=== PATIENT | female | born 1945 | race Caucasian/White ===

== ENCOUNTER → 2016-08-15 | Outpatient (CLI) | payer BC ==
--- NOTE | 2016-08-16 07:52 | XR ---
EXAM TYPE: LUMBAR SPINE X RAY SERIES COMPARISON: NONE HISTORY: Chronic pain TECHNIQUE: 4 views are submitted. FINDINGS: Curvature of the spine noted severe degenerative disc disease L-1-L2. Vacuum disc and severe changes at L5-S1 disc space. Marked facet arthropathy. Severe degenerative disc disease L2-L3. Surgical clips in the right upper quadrant and multiple punctate calcifications suggestive of renal s tones. IMPRESSION: 1. Scoliotic curvature of the spine with multilevel severe degenerative disc disease consider MRI. 2. Correlate for right-sided renal calculi
--- NOTE | 2016-08-16 07:53 | XR ---
EXAMINATION TYPE: XR knee complete RT DATE OF EXAM: 08/15/2016 1:34 PM COMPARISON: NONE HISTORY: Pain TECHNIQUE: Four views are submitted. FINDINGS: Hypertrophic changes and narrowing of the joint space is seen. No erosive changes. Small amount flows patellar bursa. Osseous structures are intact. No acute fracture seen. IMPRESSION: 1. No acute fracture or dislocation. 2. Post arthritic changes.
== END | disposition home or self-care (01) ==
LOC: RADXRYALE 13:14
PROVIDERS: ATTEND Internal Medicine
DX: M13.861 Other specified arthritis, right knee (principal); M51.36 Other intervertebral disc degeneration, lumbar region; M41.9 Scoliosis, unspecified
CPT/HCPCS: 72110

== ENCOUNTER → 2016-09-26 | Outpatient (CLI) | payer BC ==
--- NOTE | 2016-09-26 09:13 | MR ---
EXAMINATION TYPE: MR lumbar spine wo con DATE OF EXAM: 09/26/2016 7:58 AM COMPARISON: NONE HISTORY: spinal stenosis lsp, back pain TECHNIQUE: T1 and T2 axial and sagittal images of the lumbar spine are submitted. FINDINGS: There is no abnormal signal seen within the visualized spinal cord or paraspinal soft tissu es. There is a curvature the spine with severe degenerative disc disease L-1-2 and L2-L3 with discoge kamila marrow changes. Similar findings at L5-S1 with small vertebral body hemangioma. Vertebral body he mangioma also noted at levels L4, L3, and L2. There is a 1.9 cm mass involving the left kidney upper pole. At T12-L1 there is right paracentral lateral disc bulging but no canal stenosis or foraminal encroach ment. No spinal cord contact. At L1-2 there is there is a marked facet arthropathy. No canal stenosis or foraminal encroachment. At L2-3 there is diffuse disc bulging greater paracentrally and laterally to the right with mild to m oderate right foraminal encroachment. No Canal stenosis. Facet arthropathy noted. At L3-4 there is severe facet arthropathy and hypertrophy of the ligamentum flavum is circumferential disc bulging and borderline canal stenosis. Mild left-sided foraminal encroachment. At L4-5 there is severe facet arthropathy with ligamentum flavum hypertrophy but no focal disc hernia tion or canal stenosis. No foraminal encroachment. At L5-S1 there is severe degenerative disc disease with 2 mm retrolisthesis of L5 relative to S1. Anitra ular tear seen with no discrete herniation. There is significant facet arthropathy and mild to modera te foraminal encroachment greater on the left secondary to greater hypertrophic changes on the left. IMPRESSION: 1. Stable left renal mass dating back to 2013 differential diagnosis would include angiomyolipoma. Un derlying renal cell carcinoma also in the differential diagnosis. Note is made the lesion was not pre sent on the CT scan of 2005. 2. Scoliotic curvature with severe multilevel degenerative disc disease. Multilevel facet arthropathy noted with the most marked changes involving the mid and lower lumbar spine. 3. Multilevel foraminal encroachment with the most marked changes seen at L5-S1 greater on the left. 4. Borderline canal stenosis L3-L4 due to disc bulging and hypertrophic changes. No discrete herniati on and in the visualized levels. 5. Heterogeneous marrow changes are nonspecific but likely the basis of osteopenia.
== END | disposition home or self-care (01) ==
LOC: RADMRIMAIN 07:04
PROVIDERS: ATTEND Internal Medicine
DX: M48.06 Spinal stenosis, lumbar region (principal); M99.73 Connective tissue and disc stenosis of intervertebral foramina of lumbar region
CPT/HCPCS: 72148

== ENCOUNTER → 2016-10-21 | Outpatient (CLI) | payer BC ==
--- NOTE | 2016-10-21 08:59 | MR ---
EXAMINATION TYPE: MR knee RT wo con DATE OF EXAM: 10/21/2016 COMPARISON: Right knee 15 August 2016 HISTORY: Rt Knee Pain TECHNIQUE: Multiplanar, multisequence imaging of the right knee is performed without IV contrast. FINDINGS: MEDIAL MENISCUS: Posterior horn of the medial meniscus shows abnormal increased signal involving its lateral aspect, linear increased signal is present which extends into the body. Anterior horn appears intact. LATERAL MENISCUS: Anterior and posterior horns are intact without tear. CRUCIATE LIGAMENTS: The anterior and posterior cruciate ligaments are intact and unremarkable. COLLATERAL LIGAMENTS: The medial collateral ligament and lateral collateral ligament complex are inta ct and unremarkable. EXTENSOR MECHANISM: Visualized quadriceps and patellar tendons are intact. EFFUSION: There is a sizable joint effusion present in the suprapatellar location. POPLITEAL CYST: No popliteal/ku cyst. TRICOMPARTMENT SPACES: Joint space loss is present with remodeling especially at the patellofemoral j oint, medial compartment CARTILAGE: Grade 3 to grade 4 articular cartilage loss present posterior patella, medial femoral cond yle BONE MARROW SIGNAL: Subchondral edema changes are present at the posterior patella, medial femoral co ndyle OTHER: Marginal spurring is present in the medial compartment, patellofemoral joint. Subcutaneous ed yu changes are present. IMPRESSION: Osteoarthritis, chondromalacia as described. Tear of the posterior horn medial meniscus.
== END | disposition home or self-care (01) ==
LOC: RADMRIMAIN 07:05
PROVIDERS: ATTEND Internal Medicine
DX: S83.241A Other tear of medial meniscus, current injury, right knee, initial encounter (principal); M94.261 Chondromalacia, right knee; M17.11 Unilateral primary osteoarthritis, right knee

== ENCOUNTER → 2018-05-20 | Outpatient (CLI) | payer MEDICARE ==
--- NOTE | 2018-05-23 11:05 | MM ---
Reason for exam: screening (asymptomatic). Last mammogram was performed 2 years ago. History: Patient is postmenopausal and has history of other cancer at age 68. Family history of breast cancer in paternal grandmother and breast cancer in cousin. Physical Findings: A clinical breast exam by your physician is recommended on an annual basis and results should be correlated with mammographic findings. MG 3D Screening Mammo W/Cad Bilateral CC and MLO view(s) were taken. Prior study comparison: May 18, 2016, bilateral MG screening mammo w CAD. May 10, 2015, bilateral MG screening mammo w CAD. There are scattered fibroglandular densities. There is no discrete abnormality. ASSESSMENT: Negative, BI-RAD 1 RECOMMENDATION: Routine screening mammogram of both breasts in 1 year.
== END ==
LOC: RADMAMWWP 09:34
PROVIDERS: ATTEND Internal Medicine
DX: Z12.31 Encounter for screening mammogram for malignant neoplasm of breast (principal)
CPT/HCPCS: 77063; 77067

== ENCOUNTER → 2018-10-14 | Outpatient (CLI) | payer MEDICARE | END | disposition home or self-care (01) | LOC: LABWHC1 11:49 | PROVIDERS: ATTEND Psychiatry & Neurology Neurology | DX: D32.9 Benign neoplasm of meninges, unspecified (principal) | CPT/HCPCS: 36415; 82565; 84520 ==

== ENCOUNTER → 2018-11-25 | Outpatient (CLI) | payer MEDICARE, OTHER ==
--- NOTE | 2018-11-26 13:31 | MR ---
EXAMINATION TYPE: MR kidney wo/w con DATE OF EXAM: 11/25/2018 COMPARISON: CT the chest dated 11/02/2015 HISTORY: Benign lipomatous neoplasm of kidney CONTRAST: Standard multiplanar, multisequence MRI departmental protocol utilizing 9.5 mL intravenous Gadavist g adolinium contrast. FINDINGS: There is no evidence of signal dropout within the liver to suggest hepatic steatosis. There is a smal l hiatal hernia. Punctate probable cysts are seen within the hepatic infiltrate and associated segmen t 6 measuring 3 mm. Hepatic cyst that is T2 hyperintense and T1 hypointense and nonenhancing. No susp icious hepatic lesion is seen. The known left upper pole angiomyolipoma with macroscopic fat does demonstrate signal dropout on out of phase imaging with microscopic fat also seen. This demonstrates dropout of signal on fat saturated images as well. No hemorrhage is identified mass. This measures up to 2.5 x 2.1 cm position this dem onstrates minimal growth from the prior of 11/02/2015. Small splenule is seen. Spleen is nonenlarged 11.8 cm in longitudinal dimension. No ductal dilatation . Punctate T2 hyperintense 3 mm cystic areas are seen within the pancreas on T2 axial fat sat image 2 4 and 16 in the body and uncinate process respectively. 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 I ncidental note is made of a circumaortic left renal vein. No pathologic adenopathy is seen. IMPRESSION: 1. Minimal enlargement of the left renal angiomyolipoma in comparison to the prior of 11/02/2015. This now measures up to 2.5 cm. Given the size this is at low risk for intratumoral hemorrhage. 2. 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 Annual surve illance is recommended for lesions of this size.
== END | disposition home or self-care (01) ==
LOC: RADMRIMAIN 11:52
PROVIDERS: ATTEND Internal Medicine
DX: D17.71 Benign lipomatous neoplasm of kidney (principal); K86.9 Disease of pancreas, unspecified
CPT/HCPCS: 74183; A9585

== ENCOUNTER → 2019-04-01 | Outpatient (CLI) | payer MEDICARE, OTHER ==
--- NOTE | 2019-04-01 10:36 | XR ---
Cervical spine HISTORY: Neck pain, numbness in base of head 5 views of the cervical spine with comparison to prior cervical spine plain film 06/07/2015 There is multilevel facet arthropathy change. Incidental note made of a loop recorder over the left u pper chest. Oblique images are limited on the left for evaluation of the foramina, and the right there is some fo raminal encroachment at C3-4, C4-5, C5-6, likely C6-7. Multilevel spondylosis is present. Cervical ve rtebral bodies show stable height and alignment. Loss of disc height present at intervertebral levels C3-4, C4-5 and C5-6 and C6-7. Minimal anterolisthesis grade 1 C7-T1. IMPRESSION: Degenerative disc disease and facet arthropathy, multilevel foraminal encroachment, findi ngs have progressed compared to prior exam at C3-4, cervical MRI could be performed for increased sen sitivity.
== END | disposition home or self-care (01) ==
LOC: RADXRYALE 09:55
PROVIDERS: ATTEND Internal Medicine
DX: M50.30 Other cervical disc degeneration, unspecified cervical region (principal); M46.92 Unspecified inflammatory spondylopathy, cervical region
CPT/HCPCS: 72050

== ENCOUNTER → 2019-04-30 | Outpatient (CLI) | payer MEDICARE, OTHER ==
--- NOTE | 2019-04-30 14:32 | MR ---
EXAMINATION TYPE: MR cervical spine wo con DATE OF EXAM: 04/30/2019 COMPARISON: None HISTORY: 73-year-old female Spinal stenosis, cervical region, pain TECHNIQUE: Multiplanar, multisequence images of the cervical spine were acquired. FINDINGS: No craniocervical junction of the body, predental space widening, or prevertebral soft tissue swellin g. Some degenerative change at the C1 dens articulation. Straightening of the normal cervical lordosis but with preserved alignment. Moderate disc session for degenerative change is present mid and lower cervical spine with desiccated , mildly narrowed disks and discussed by complex formation particularly at C4-C7 levels. Additional multilevel facet and uncovertebral joint arthropathy. Some sclerotic Modic type III endplate changes present at C6-C7 and some scattered fatty Modic type I I endplate change at additional levels. No suspicious bone marrow placement. At C2-C3, no canal or foraminal stenosis. At C3-C4, right greater than left uncovertebral joint and facet arthropathy with moderate right neuro foraminal stenosis. Mild posterior disc bulge mainly narrows the spinal canal. At C4-C5, broad-based discussed with complex with right greater than left uncovertebral joint and fac et degenerative change results in moderate to severe right neural foraminal stenosis. Mild overall na rrowing of the spinal canal with abutment of the ventral cord. At C5-C6, broad-based discussed by complex with contiguous uncovertebral joint arthropathy. Lateral f acet arthropathy is also present. Changes result in moderate to severe right and moderate left neurof oraminal stenosis. Mild spinal canal stenosis with abutment and slight flattening of the ventral cord . At C6-C7, broad-based discussed by complex with contiguous uncovertebral joint arthropathy. Bilateral hypertrophic facet arthropathy is also present. Changes result in moderate to severe right and moder ate left neuroforaminal stenosis with mild overall narrowing of the spinal canal. At C7-T1, facet arthropathy without canal or foraminal stenosis. No prevertebral or paravertebral soft tissue abnormality seen. Normal course and signal intensity of the cervical spinal cord. IMPRESSION: 1. Moderate disc/end plate degenerative change mid to lower cervical spine along with scattered facet and uncovertebral joint arthropathy, right greater than left. 2. Changes result in mild spinal canal stenoses from C3 through C7 levels. At C6-C7, there is abutmen t and slight flattening of the ventral cord. No cord compression or myelopathic cord signal change. 3. Variable moderate bilateral neuroforaminal stenoses as outlined above, moderate to severe on the r ight at C4-C5, C5-C6, and C6-C7.
== END | disposition home or self-care (01) ==
LOC: RADMRIMAIN 07:25
PROVIDERS: ATTEND Internal Medicine
DX: M48.02 Spinal stenosis, cervical region (principal); M47.812 Spondylosis without myelopathy or radiculopathy, cervical region
CPT/HCPCS: 72141

== ENCOUNTER → 2019-11-11 | Outpatient (CLI) | payer MEDICARE, OTHER ==
--- NOTE | 2019-11-11 14:28 | XR ---
Right foot and right ankle HISTORY: Pain for 1 to 2 months in lateral ankle 3 views of the right foot and 3 views of the right ankle are submitted On mineralization, joint spaces, alignment are maintained. No fracture or dislocation. There is a raiza ntar calcaneal spur present. There is degenerative change present at the metatarsophalangeal joint of the first digit. IMPRESSION: Plantar calcaneal spur.
== END | disposition home or self-care (01) ==
LOC: RADXRYALE 13:19
PROVIDERS: ATTEND Internal Medicine
DX: M77.31 Calcaneal spur, right foot (principal); M25.571 Pain in right ankle and joints of right foot

== ENCOUNTER → 2020-02-04 | Outpatient (CLI) | payer MEDICARE, OTHER ==
--- NOTE | 2020-02-05 11:47 | MR ---
EXAMINATION TYPE: MR kidney wo/w con DATE OF EXAM: 02/04/2020 COMPARISON: MRI kidneys 11/25/2018, CT abdomen 07/06/2015 HISTORY: Left kidney angiomyolipoma TECHNIQUE: Multiplanar, multisequence images of the kidneys were obtained without IV contrast. FINDINGS: Lung bases: No pleural or pericardial effusion. Liver: T2 hyperintense hepatic cysts. Biliary: No biliary ductal dilatation. Status post cholecystectomy. Pancreas: Fatty atrophy. No main pancreatic ductal dilatation. There are redemonstrated T2 hyperinten se cystic foci, which are unchanged in the uncinate process measuring 3 mm (601:25) and distal pancre atic body measuring 3 x 11 mm (601:33) and. The T2 hyperintense cystic focus of the mid pancreatic elena dy measures 7 mm (601:33), previously measuring 5 mm on 11/25/2018 MRI comparison. No evidence of mural nodularity or abnormal enhancement. Spleen: Normal. Splenule. Adrenals: Normal. Kidneys: There is a redemonstrated angiomyolipoma of the left kidney posterior lower pole measuring 2 .3 x 2.0 cm (601:28), unchanged from 2019 MRI comparison, and very minimally increased in size versus 2016 CT abdomen comparison when it measured 2.3 x 1.8 cm. Reconstructed macroscopic fat signal loss on fat saturation and interface signal loss on out of phase imaging. There is a 3 mm T1 hyperintense , T2 hypointense hemorrhagic/pronation cyst of the left renal lower pole (701:21, 801:105). Bowel: No bowel obstruction. Small hiatal hernia. Lymph nodes: No lymphadenopathy. Peritoneum: No ascites. VASCULATURE: No abdominal aortic aneurysm. Osseous structures: Degenerative changes of the spine, with levocurvature of the lumbar spine and lat eral subluxation of L2. Vertebral body hemangiomas. IMPRESSION: 1. 2.3 cm left renal angiomyolipoma unchanged versus 11/25/2018 MRI comparison, and very minimally incr eased in size versus 2016 CT comparison. 2. 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 L argest lesion measures up to 3 x 11 mm and is unchanged. 7 mm lesion in the pancreatic body is mildly increased versus 11/25/2018, previously measuring 5 mm.
== END | disposition home or self-care (01) ==
LOC: RADMRIMAIN 13:53
PROVIDERS: ATTEND Internal Medicine
DX: D17.71 Benign lipomatous neoplasm of kidney (principal); K86.9 Disease of pancreas, unspecified
CPT/HCPCS: 74183; A9585

== ENCOUNTER → 2021-02-03 | Outpatient (CLI) | payer MEDICARE, OTHER ==
--- NOTE | 2021-02-07 09:37 | MM ---
Reason for exam: screening (asymptomatic). Last mammogram was performed 2 years and 9 months ago. History: Patient is postmenopausal and has history of other cancer at age 68. Family history of breast cancer in paternal grandmother and breast cancer in paternal cousin. Physical Findings: A clinical breast exam by your physician is recommended on an annual basis and results should be correlated with mammographic findings. MG 3D Screening Mammo W/Cad Bilateral CC and MLO view(s) were taken. Prior study comparison: May 20, 2018, bilateral MG 3d screening mammo w/cad. May 18, 2016, bilateral MG screening mammo w CAD. There are scattered fibroglandular densities. Vascular calcifications anterior left breast slightly increased. No significant changes when compared with prior studies. ASSESSMENT: Benign, BI-RAD 2 RECOMMENDATION: Routine screening mammogram of both breasts in 1 year.
== END | disposition home or self-care (01) ==
LOC: RADMAMWWP 09:33
PROVIDERS: ATTEND Internal Medicine
DX: Z12.31 Encounter for screening mammogram for malignant neoplasm of breast (principal); Z78.0 Asymptomatic menopausal state; Z85.9 Personal history of malignant neoplasm, unspecified; Z80.3 Family history of malignant neoplasm of breast
CPT/HCPCS: 77063; 77067

== ENCOUNTER → 2021-02-18 | Outpatient (CLI) | payer MEDICARE, OTHER ==
--- NOTE | 2021-02-18 13:56 | BD ---
EXAMINATION TYPE: Axial Bone Density DATE OF EXAM: 02/18/2021 COMPARISON: NONE CLINICAL HISTORY: Height: 5 FT 4 IN Weight: 201 FRAX RISK QUESTIONS: Alcohol (3 or more units per day): NO Family History (Parent hip fracture): NO Glucocorticoids (More than 3mos): YES (Ex: prednisone, prednisolone, methylprednisolone, dexamethasone, and hydrocortisone). History of Fracture in Adulthood: NO Secondary Osteoporosis: 1. Type 1 Diabetes: NO 2. Hyperthyroidism: NO 3. Menopause before 45: YES AROUND 47 4. Malnutrition: NO 5. Chronic liver disease: NO Rheumatoid Arthritis: NO Current Tobacco Use: NO RISK FACTORS HISTORY OF: Surgery to Spine/Hip(right/left)/Wrist (right/left): NO Family History of Osteoporosis: UNSURE Active: YES Diet low in dairy products/other sources of calcium: NO Postmenopausal woman: AROUND AGE 47 HYST AGE 67 Take estrogen and/or progesterone medications: NO Lost more than 2 inches in height since high school: NO MEDICATIONS: Additional Medications: METOPROLOL, OMEPRAZOLE, METFORMIN, ELOQUIS, LOSARTAN Additional History: EXAM MEASUREMENTS: Bone mineral densitometry was performed using the [employer] System. Bone mineral density as measured about the Lumbar spine is: ----- L1-L4(G/cm2): 1.654 T Score Values are as follows: ----- L2: 5.2 ----- L3: 4.6 ----- L4: 3.8 ----- L1-L4: 3.9 BASELINE Bone mineral density about the R hip (g/cm2): 1.115 Bone mineral density about the L hip (g/cm2): 1.010 T Score values are as follows: -----R Neck: 0.6 -----L Neck: -0.2 -----R Total: 1.5 -----L Total: 1.7 BASELINE IMPRESSION: No evidence for osteoporosis or osteopenia. NOTE: T-SCORE=SD OF THE YOUNG ADULT MEAN.
== END | disposition home or self-care (01) ==
LOC: RADBDWWP 09:47
PROVIDERS: ATTEND Internal Medicine
DX: Z78.0 Asymptomatic menopausal state (principal)
CPT/HCPCS: 77080

== ENCOUNTER → 2021-04-13 | Outpatient (CLI) | payer MEDICARE, OTHER ==
--- NOTE | 2021-04-13 17:06 | MR ---
MR kidney with and without contrast HISTORY: D17.71 Benign lipomatous neoplasm of kidney Multiplanar multisequence and postcontrast images obtained through the kidneys following 19 cc gadoli nium based IV, correlation with prior MR kidney 02/04/2020 At the upper pole of the left kidney the fat signal mass is again noted and measures approximately 2. 5 cm similar to prior exam. Loss of signal noted on out of phase imaging. Enhancement pattern is well[place] lar to prior exam with some stromal elements present within the fatty mass. Circumaortic left renal v ein is noted. The liver is borderline enlarged. Signal drop on out of phase imaging within the liver is consistent with hepatic steatosis, T2 intense cyst is present, patient is postcholecystectomy. Adrenal glands, s pleen, pancreas show no interval change, pancreas shows fatty atrophy as well as small T2 bright cyst ic foci without abnormal enhancement. Small splenule is again noted. Aorta is stable. No retroperiton eal adenopathy. Bowel is unchanged. IMPRESSION: Stable angiomyolipoma left kidney
== END ==
LOC: RADMRIMAIN 08:03
PROVIDERS: ATTEND Internal Medicine
DX: D17.71 Benign lipomatous neoplasm of kidney (principal); K86.2 Cyst of pancreas
CPT/HCPCS: 74183; A9585

== ENCOUNTER → 2022-03-25 | Outpatient (CLI) | payer MEDICARE, OTHER ==
--- NOTE | 2022-03-26 03:06 | MR ---
EXAMINATION TYPE: MR kidney wo/w con DATE OF EXAM: 03/25/2022 COMPARISON: HISTORY: Left kidney angiomyolipoma CONTRAST: Standard multiplanar, multisequence MRI departmental protocol images were obtained without contrast a nd with 9 mL intravenous Gadavist gadolinium contrast. The liver has normal size and contour. There is 1.8 cm cyst in the caudate lobe of the liver. Bile du cts are nondilated. No evidence of pleural effusion. Heart size is normal. No sign of pericardial eff usion. The spleen is intact. No evidence of pancreatic mass. The bile ducts are not dilated. Pancreat ic duct is not dilated. Stomach is intact. There is no adrenal mass. There is no ascites. There is a sharply marginated rounded 2.2 cm mass upper pole left kidney with mixed signal and consis tent with angiomyolipoma. This is not changed in size compared to 02/14/2020. The lesion shows very li ttle enhancement there is normal enhancement of the portal venous system. No pathologic enhancement. Kidneys otherwise have normal size and contour. No hydronephrosis. No retroperitoneal adenopathy. No evidence of a bowel obstruction. No evidence of ascites. IMPRESSION: Rounded lesion upper pole left kidney consistent with angiomyolipoma and not changed in size.
== END | disposition home or self-care (01) ==
LOC: RADMRIMAIN 08:49
PROVIDERS: ATTEND Internal Medicine
DX: D17.71 Benign lipomatous neoplasm of kidney (principal)
CPT/HCPCS: 74183; A9585

== ENCOUNTER → 2022-05-11 | Outpatient (CLI) | payer MEDICARE, OTHER ==
--- NOTE | 2022-05-12 08:46 | XR ---
EXAMINATION TYPE: XR cervical spine comp DATE OF EXAM: 05/11/2022 COMPARISON: NONE HISTORY: Pain TECHNIQUE: Four views are submitted. FINDINGS: The odontoid is intact. There are no compression deformities. The prevertebral soft tissue structur es are within normal limits. There is hypertrophic and degenerative disc disease at levels C3-C7 wit h severe changes noted. Posterior spondylosis particularly noted at C5-6 and C6-C7. Suspect multileve l bilateral foraminal procurement. Calcifications soft tissue the left neck most likely the basis of carotid artery atherosclerotic changes. IMPRESSION: 1. Multilevel severe degenerative disc disease with multilevel foraminal encroachment suspected corre late with MRI as clinically warranted..
== END | disposition home or self-care (01) ==
LOC: RADXRYALE 15:54
PROVIDERS: ATTEND Internal Medicine
DX: M54.2 Cervicalgia (principal)
CPT/HCPCS: 72050

== ENCOUNTER → 2023-02-15 | Outpatient (CLI) | payer MEDICARE, OTHER ==
[2023-02-15 08:36] LABS: Partial Thromboplastin Time 24.5 sec (22.0-30.0); Prothrombin Time 10.5 sec (9.0-12.0)
[2023-02-15 11:02] LABS: Appearance,Urine Cloudy (Clear); Bacteria,Urine Occasional /hpf; Bilirubin,Urine Negative (Negative); Blood,Urine Negative (Negative); Color,Urine Light Yellow; Glucose,Urine (UA) Negative (Negative); Ketones,Urine Negative (Negative); Leukocyte Esterase,Urine Trace (Negative); Mucus,Urine Rare /hpf; Nitrite,Urine Negative (Negative); PH, Urine 6.5 (5.0-8.0); Protein,Urine Negative (Negative); RBC,Urine <1 /hpf (0-5); Specific Gravity,Urine 1.015 (1.001-1.035); Squamous Epithelial Cell,Urine 13 /hpf (0-4); Urobilinogen,Urine <2.0 mg/dL (<2.0); WBC,Urine 8 /hpf (0-5)
[2023-02-15 16:31] LABS: HCT 40.6 % (37.2-46.3); HGB 12.8 d/dL (12.0-15.0); MCH 26.4 pg (27.0-32.0); MCHC 31.5 d/dL (32.0-37.0); MCV 83.9 FL (80.0-97.0); Mean Platelet Volume 10.2 FL (9.5-12.2); NRBC Per 100 WBC 0 X 10*3/uL (0.00-0.01); Platelet Count 203 X 10*3/uL (140-440); RBC 4.84 X 10*6/uL (4.10-5.20); RDW 13.2 % (11.5-14.5); WBC 5.88 X 10*3/uL (4.50-10.00)
[2023-02-15 17:54] LABS: Blood Urea Nitrogen 12.4 mg/dL (9.0-27.0); Chloride 103 mmol/L (96-109); Glucose 110 mg/dL (70-110); Potassium 4.5 mmol/L (3.5-5.5); Sodium 142 mmol/L (135-145)
[2023-02-15 17:55] LABS: ALT 24 U/L (8-44); AST 22 U/L (13-35); Albumin 4.4 d/dL (3.8-4.9); Albumin/Globulin Ratio 2.44 Ratio (1.60-3.17); Alkaline Phosphatase 74 U/L (41-126); Calcium 9.8 mg/dL (8.7-10.3); Carbon Dioxide 28.8 mmol/L (21.6-31.8); Globulin 1.8 d/dL (1.6-3.3); Total Bilirubin 1.2 mg/dL (0.3-1.2); Total Protein 6.2 d/dL (6.2-8.2)
== END | disposition home or self-care (01) ==
LOC: LABPAT 07:14
PROVIDERS: ATTEND Orthopaedic Surgery
DX: Z01.812 Encounter for preprocedural laboratory examination (principal); M16.11 Unilateral primary osteoarthritis, right hip; R00.1 Bradycardia, unspecified; R94.31 Abnormal electrocardiogram [ECG] [EKG]
CPT/HCPCS: 80053; 81001; 85027; 85610; 85730; 87070; 93005

== ENCOUNTER 2023-02-23 05:38 | Day surgery (SDC) | payer MEDICARE, OTHER ==
[2023-02-19 13:51] VITALS: BMI 32.3
[~2023-02-23 05:38] MED LIST: ROPIVACAINE/EPI/CLONIDINE/KET 50 ML SYRINGE MISCELLANE PRN
[2023-02-23] MEDS ORDERED: ACETAMINOPHEN TAB 500 MG TAB PO PRN (06:00)
[2023-02-23] MEDS ORDERED: KETOROLAC 15 MG/ML 1 ML VIAL IVP PRN (06:00)
[2023-02-23] MEDS ORDERED: FAMOTIDINE 20 MG/2 ML VIAL IVP PRN (06:00)
[2023-02-23] MEDS ORDERED: oxyCODONE ER 10 MG TAB.ER.12H PO PRN (06:00)
[2023-02-23] MEDS ORDERED: ONDANSETRON 4 MG/2 ML VIAL IVP PRN ×3 (06:00→19:14)
[2023-02-23] MEDS ORDERED: TRANEXAMIC 1,000 MG/100ML-NACL 1,000 MG in SALINE 1 100ML.BAG IVPB PRN (06:00)
[2023-02-23] MEDS ORDERED: DEXAMETHASONE SOD PHOSPHATE 10 MG/ML 1 ML VIAL IV PRN (06:00)
[2023-02-23] MEDS ORDERED: DOCUSATE 100 MG CAP PO PRN (06:00)
[2023-02-23] MEDS ORDERED: TRANEXAMIC 1,000 MG/100ML-NACL 1,000 MG in SALINE 1 100ML.BAG IV PRN (06:00)
[2023-02-23] MEDS ORDERED: LIDOCAINE 1% (10MG/ML) FOR IV START INTRADERMA PRN (06:05)
[2023-02-23] MEDS: LACTATED RINGERS 1,000 ML IV SCH ×3 (07:00→20:58)
[2023-02-23] MEDS ORDERED: HYDROmorphone 0.5 MG/0.5 ML SYRINGE IVP PRN ×4 (07:00→10:26)
[2023-02-23 07:01] LABS: Glucose,Whole Blood 118 mg/dL (70-110)
[2023-02-23] MEDS ORDERED: MIDAZOLAM 2 MG/2 ML VIAL IVP ONE (07:11)
[2023-02-23] MEDS ORDERED: fentaNYL (PF) 50 MCG/ML 2 ML AMP ONE (07:43)
[2023-02-23] MEDS ORDERED: NEOSTIGMINE 1 MG/ML 10 ML VIAL ONE (07:43)
[2023-02-23] MEDS ORDERED: PROPOFOL 10 MG/ML 20 ML VIAL IV ONE (07:43)
[2023-02-23] MEDS ORDERED: ROCURONIUM 10 MG/ML (5 ML VIAL) IV ONE (07:43)
[2023-02-23] MEDS ORDERED: ROPIVACAINE 5 MG/ML 30 ML VIAL ONE (07:43)
[2023-02-23] MEDS ORDERED: LIDOCAINE 2% INJ 20 MG/ML (2 ML VIAL) ONE (07:43)
[2023-02-23] MEDS ORDERED: SUCCINYLCHOLINE CHLORIDE 200 MG/10 ML VIAL IV ONE (07:43)
[2023-02-23] MEDS ORDERED: DEXAMETHASONE SOD PHOSPHATE 4 MG/ML 1 ML VIAL ONE (07:43)
[2023-02-23] MEDS ORDERED: GLYCOPYRROLATE 0.2 MG/ML 2 ML VIAL ONE (07:43)
[2023-02-23] MEDS ORDERED: LACTATED RINGERS 1,000 ML IV ONE (10:01)
--- NOTE | 2023-02-23 10:04 | XR ---
EXAMINATION TYPE: XR Hip Limited RT DATE OF EXAM: 02/23/2023 COMPARISON: NONE HISTORY: Postop TECHNIQUE: 8 views submitted. FINDINGS: Postsurgical change involving the right superior alignment. IMPRESSION: 1. Postoperative change.
--- NOTE | 2023-02-23 10:06 | FL ---
EXAMINATION TYPE: FL guidance operating room DATE OF EXAM: 02/23/2023 HISTORY: Fluoroscopy time Total dose area product (DAP) in uGy*m?, mGy*cm? (or similar): None provided. IMPRESSION: 1. Fluoroscopy time.
--- NOTE | 2023-02-23 10:17 | P.OP ---
Date of Procedure: 02/23/23 Preoperative Diagnosis: 1. Severe right hip osteoarthritis 2. BMI 32.6 3. Atrial fibrillation on Eliquis 4. Sensitivity to adhesives 5. Type 2 diabetes Postoperative Diagnosis: Same Procedure(s) Performed: 1. Right direct anterior total hip arthroplasty 2. Application of negative pressure incisional wound VAC right hip, less than 50 cm, incision measuring 15 cm (an incisional wound VAC was used due to the patient's sensitivity to adhesive dressings) Implants: 1. Harish Trident II Acetabular Cup, Size #52 2. Harish Accolade C Size # 3 Femoral Stem, Standard Offset 3. Dual Mobility OD 42 mm, ID 28 mm, -4 mm neck Anesthesia: CARLAA, regional Surgeon: Dennis Grande Air Intelligence Officer #1: Miladys Trujillo Estimated Blood Loss (ml): 100 IV fluids (ml): 800 Pathology: none sent Condition: stable Disposition: PACU Indications for Procedure: I had a long discussion with the patient in the office on the potential risks and complications of an elective total hip replacement through a direct anterior approach. Risks discussed include, but are certainly not limited to, risks from anesthesia, superficial infection requiring local wound care or antibiotics, deep lana-prosthetic joint infection and the treatment required to eradicate infection, intraoperative fracture, postoperative periprosthetic fracture, damage to local blood vessels or nerves particularly the lateral femoral cutaneous nerve, delayed wound healing requiring local wound care or possibly surgical debridement, hip dislocation, leg length discrepancy, soft tissue irritation around the total hip implant such as iliopsoas tendinitis or trochanteric bursitis, wear and osteolysis from the implants, squeaking or audible noises, groin pain, thigh pain, heterotopic ossification, stiffness, aseptic loosening of the implants, dissatisfaction with surgical outcome, need for revision surgery, DVT, PE, swelling of the operative extremity, acute coronary event, stroke, failure to thrive, and possibly loss of life or limb. The patient understands that while these are the most common complications after an elective hip replacement there are certainly other less common complications possible. They were given ample time to ask questions regarding the potential complications of a hip replacement. Following our discussion the patient provided their verbal and written consent to go forward with an elective total hip replacement. Operative Findings: Severe right hip osteoarthritis Description of Procedure: The patient was identified in the preoperative holding area and the correct hip was marked with my initials. I reviewed the procedure and consent with the patient. All of their questions were answered. The patient was then brought back into the operating room by anesthesia. While on the [facility] anesthesia was administered by the anesthesia team. Preoperative antibiotics and tranexamic acid were also given. After the patient was under anesthesia I examined their ankles to determine their preoperative leg length discrepancy. The skin over the anterior aspect of the hip was shaved to remove hair over the site of planned incision. Both feet and ankles were padded with webril and boots for the [place] were applied. The patient was then carefully transferred onto the [place] table. A perineal post was immediately placed. The arms were placed on arm holders and were well-padded. Both boots were secured to the spars on the [place] table. The patient was positioned so that the pelvis was centered over the post. Nonsterile drapes were applied. A timeout was performed identifying the correct patient, operative extremity, and procedure. At this point fluoroscopy was brought in to take preoperative images of the pelvis and operative hip. Using the standing AP pelvis from the office as a template, a comparable image was obtained with fluoroscopy. A metallic bar was used to create a bi-ischial line for use as a reference to leg length adjustments during the procedure. Global offset was also measured on both the operative and nonoperative leg. Fluoroscopy was then brought out and a pre-scrub using a chlorhexidine scrub brush was performed. The operative limb was then prepped and draped in the standard sterile fashion. An anterior longitudinal incision was made lateral and distal to the ASIS. The skin and subcutaneous tissues were incised sharply. The underlying tensor fascia was identified and incised in its midportion. The fascia was dissected free from the underlying muscle and the muscle belly was retracted. A blunt tipped cobra retractor was placed over the superior neck under the muscle fibers of the gluteus minimus. The deep enveloping fascia of the tensor was incised. The anterior leash of vessels were then identified and cauterized. The fascia between the rectus and the capsule was then incised and the pre-capsular fat was excised. A second Cobra was placed inferior to the neck. The interval between the rectus and iliocapsularis and the hip capsule was developed and a retractor was placed carefully over the anterior rim of the acetabulum. A T-shaped anterior capsulotomy was performed. The superior capsular leaflet was left in place in the inferior capsular flap was excised. The Cobra retractors were placed intracapsularly. We then made a femoral neck osteotomy according to preoperative and intraoperative templating and confirmed the level of the osteotomy using fluoroscopic imaging. The femoral head was removed, passed off to the back table, and sized. The superior capsular flap was excised. Retractors were placed circumferentially exposing the acetabulum. We then circumferentially debrided the acetabulum free of labrum and osteophytes. The pulvinar was removed to fully visualize the cotyloid fossa. We then sequentially reamed to achieve peripheral fit and excellent bleeding subchondral bone. The socket was thoroughly irrigated. The acetabular component was impacted into the appropriate position using fluoroscopy to guide version, inclination, and depth of insertion taking care to have a comparable image of the AP pelvis to the standing image taken in the office. An excellent press-fit was achieved and final position was confirmed using fluoroscopy. The press fit was augmented with bony cancellus dome screws. The liner was then impacted into the socket. Attention was then turned to the femur. The remnant dorsal lateral capsule was excised. The short external rotators were visible and protected. A bone hook was used to confirm appropriate translation of the trochanter away from the acetabulum. The leg was then extended and adducted and the bone hook was used to elevate the femur for broaching. On inspection of the patient's proximal femur, they appeared to have poor bone quality so I elected to proceed with cemented fixation of the femoral component. A box osteotome and blunt tipped canal sound was then utilized to gain access to the femoral canal. We then sequentially broached the femur in appropriate anteversion until torsional stability was achieved and the implant was felt to have reached the appropriate size to allow trialing. The neck cut was brought flush to the trial broach with a calcar planar. A trial neck and head were then placed onto the broach and the hip was atraumatically reduced under direct visualization. External rotation to 90 was performed to assess stability. Fluoroscopy was brought in. An AP and lateral fluoroscopic image of the proximal femur was obtained to assess position and fill of the trial broach. An AP of the pelvis was then obtained and matched to the preoperative image taken. A bi-ischial bar was then placed and measurements were taken to assess changes in length and offset. The hip was the n carefully dislocated, the proximal femur was exposed, and the trial implants were removed. The proximal femur was then prepared for cementing. The canal was thoroughly irrigated with pulsatile lavage to remove blood and marrow contents. A cement restrictor was placed to a depth just distal to the tip of the final implant. Epinephrine-soaked gauze was then packed into the proximal femur. 2 bags of cement were then mixed using a centrifuge and placed into a cement gun. Anesthesia was notified that cementing was about to commence to make sure the patient was appropriately ventilated and hydrated. Once the cement had reached appropriate consistency, the cement gun was used to fill the canal in a retrograde fashion starting at the restrictor. Cement was then pressurized into the canal with a blue tipped publicist. The stem was then carefully introduced into the cement taking care to guide the implant into appropriate version. The stem was held in position until the cement had fully set. All extra cement was removed while the cement was hardening. The trunnion was cleansed and the final head was tapped into place to engage the Salazar taper. The acetabulum was irrigated and visualized to be free of debris. The hip was carefully reduced. Stability was checked clinically with external rotation to 90 and there was no evidence of instability. Final fluoroscopic images were taken and showed appropriate leg length adjustment (following surgery to the C- arm had been disconnected, all images have been printed, the C-arm was out of the room and the patient was off of the [place] table it was realized a final image with the bi-ischial bar had not been saved or printed). The wound was then thoroughly irrigated with Irrisept. 3 L of sterile saline was irrigated through the wound using pulsatile lavage. Local anesthetic cocktail was injected into the soft tissues around the surgical field. A deep drain was placed. The wound was then closed in layers. A sterile dressing was placed over the surgical incision and drain site. Due to the patient's history of problems with wound dressings over surgical incisions, a Prevena incisional wound VAC was placed over the closed incision. The drapes were taken down and the patient was carefully transferred off of the [place] table. Following removal of the boots the leg lengths felt acceptable. The patient was then taken to recovery room having tolerated the procedure well. Miladys Trujillo PA-C was required as a skilled coding assistant for patient positioning, surgical exposure, retraction, placement of implants, and closure of the surgical wound. PLAN: The patient can weight-bear as tolerated on the operative extremity. 2 doses of postoperative antibiotics. DVT prophylaxis with aspirin 81 mg twice a day based on preoperative risk stratification. Physical therapy for gait training. Discontinue drain postoperative day #1 if output is less than 100 mL per shift.
[2023-02-23] MEDS ORDERED: HYDROcodone/APAP 5-325MG 1 EACH TAB PO PRN ×2 (10:26)
[2023-02-23] MEDS ORDERED: NALOXONE 0.4 MG/ML 1 ML VIAL IV PRN (10:26)
[2023-02-23] MEDS ORDERED: hydrOXYzine pamoate 25 MG CAP PO PRN (10:26)
[2023-02-23 11:48] LABS: Glucose,Whole Blood 205 mg/dL (70-110)
[2023-02-23] MEDS ORDERED: ONDANSETRON 4 MG/2 ML VIAL IVP ONE (11:52)
[2023-02-23] MEDS ORDERED: DEXTROSE 50% SYRINGE 50 ML IVP PRN ×2 (12:10)
[2023-02-23] MEDS: INSULIN ASPART (NovoLOG) 100 UNIT/ML VIAL SQ SCH ×3 (12:21→20:49)
[2023-02-23 16:40] LABS: Glucose,Whole Blood 177 mg/dL (70-110)
[2023-02-23 20:45] LABS: Glucose,Whole Blood 155 mg/dL (70-110)
[2023-02-23] MEDS ORDERED: SENNOSIDES-DOCUSATE SODIUM 1 EACH TAB PO SCH (21:00)
[2023-02-23] MEDS ORDERED: LOSARTAN 50 MG TAB PO SCH (22:15)
[2023-02-24] MEDS: LACTATED RINGERS 1,000 ML IV SCH ×2 (05:29)
[2023-02-24 05:58] LABS: Glucose,Whole Blood 131 mg/dL (70-110)
[2023-02-24] MEDS: INSULIN ASPART (NovoLOG) 100 UNIT/ML VIAL SQ SCH ×2 (06:07→14:45)
--- NOTE | 2023-02-24 07:08 | P.DS ---
Providers Date of admission: 02/23/2023 Attending physician: Dennis Grande Consults: 02/23/23 10:26 Consult Physician Routine Consulting Provider: Avery Renee Consult Reason/Comments: medical management Do you want consulting provider notified?: Yes Primary care physician: Esme House [facility] Course: The patient is a very pleasant 77-year-old female who was admitted under my care yesterday after undergoing an uncomplicated right direct anterior total hip replacement. Following an uncomplicated surgery she was admitted to the floor. She received 2 doses of postoperative antibiotics. She was transitioned from IV to oral pain medications. She is alert and able to get up and ambulate with assistance of a walker. She did well with physical therapy. Her drain was pulled on postoperative day #1. She was ultimately cleared for discharge home on postoperative day #1. Plan - Discharge Summary Discharge Rx Participant: No New Discharge Prescriptions: New Docusate [Colace] 100 mg PO BID #60 capsule HYDROcodone/APAP 5-325MG [[place] 5-325] 1 - 2 tab PO Q6HR PRN 7 Days #32 tab PRN Reason: Pain Omeprazole 40 mg PO DAILY 30 Days #30 cap No Action Metoprolol Succinate (ER) [Toprol XL] 12.5 mg PO QAM metFORMIN HCL 500 mg PO BID Cholecalciferol [Vitamin D3 (25 Mcg = 1000 Iu)] 25 mcg PO DAILY Ventolin Hfa Inhaler (? Dose) 1 puff INHALATION DIRECTED PRN PRN Reason: Shortness Of Breath Omeprazole 20 mg PO QAM Apixaban [Eliquis] 5 mg PO BID Rosuvastatin Calcium 5 mg PO HS Losartan Potassium 50 mg PO HS Discharge Medication List Metoprolol Succinate (ER) [Toprol XL] 12.5 mg PO QAM 03/14/14 [History] Apixaban [Eliquis] 5 mg PO BID 02/19/23 [History] Cholecalciferol [Vitamin D3 (25 Mcg = 1000 Iu)] 25 mcg PO DAILY 02/19/23 [History] Losartan Potassium 50 mg PO HS 02/19/23 [History] Omeprazole 20 mg PO QAM 02/19/23 [History] Rosuvastatin Calcium 5 mg PO HS 02/19/23 [History] Ventolin Hfa Inhaler (? Dose) 1 puff INHALATION DIRECTED PRN 02/19/23 [History] metFORMIN HCL 500 mg PO BID 02/19/23 [History] Docusate [Colace] 100 mg PO BID #60 capsule 02/23/23 [Rx] HYDROcodone/APAP 5-325MG [[place] 5-325] 1 - 2 tab PO Q6HR PRN 7 Days #32 tab 02/23/23 [Rx] Omeprazole 40 mg PO DAILY 30 Days #30 cap 02/23/23 [Rx] Follow up Appointment(s)/Referral(s): [facility] [NON-STAFF] - As Needed Dennis Grande MD [Medical Doctor] - 2 Weeks Activity/Diet/Wound Care/Special Instructions: Weight bear to tolerance on operative extremity with a walker. Keep Prevena wound vac in place until follow-up in the office. Do not remove. Call the office with any questions regarding wound vac. Take pain medications as needed. Resume Eliquis for blood clot prevention. Follow-up in the office in two weeks at [facility]. Call the office with any questions or concerns, Discharge Disposition: HOME WITH HOME HEALTH SERVICES
[2023-02-24] MEDS ORDERED: METOPROLOL SUCCINATE (ER) 25 MG TAB.ER.24H PO SCH (09:00)
[2023-02-24] MEDS ORDERED: PANTOPRAZOLE 40 MG TABLET PO SCH (09:00)
[2023-02-24] MEDS ORDERED: APIXABAN 5 MG TAB PO SCH (09:00)
--- NOTE | 2023-02-24 14:11 | P.CONS ---
History of Present Illness - Reason for Consult Consult date: 02/24/23 Medical management - History of Present Illness History of present illness; patient is a 77-year-old lady who presented to the ER for elective right total hip arthroplasty with orthopedics. Patient was being followed outpatient by orthopedics for right hip pain. Patient has tried all conservative measures but right hip pain was worsening. Patient discussed with orthopedics in outpatient setting and they schedule patient for right total hip arthroplasty. Postoperatively medicine team was consulted for medical management REVIEW OF SYSTEMS: CONSTITUTIONAL: No fever, no malaise, no fatigue. HEENT: No recent visual problems or hearing problems. Denied any sore throat. CARDIOVASCULAR: No chest pain, orthopnea, PND, no palpitations, no syncope. PULMONARY: No shortness of breath, no cough, no hemoptysis. GASTROINTESTINAL: No diarrhea, no nausea, no vomiting, no abdominal pain. NEUROLOGICAL: No headaches, no weakness, no numbness. HEMATOLOGICAL: Denies any bleeding or petechiae. GENITOURINARY: Denies any burning micturition, frequency, or urgency. MUSCULOSKELETAL/RHEUMATOLOGICAL: Complaining of right knee pain ENDOCRINE: Denies any polyuria or polydipsia. The rest of the 14-point review of systems is negative. PHYSICAL EXAMINATION: GENERAL: The patient is alert and oriented x3, not in any acute distress. Well developed, well nourished. HEENT: Pupils are round and equally reacting to light. EOMI. No scleral icterus. No conjunctival pallor. Normocephalic, atraumatic. No pharyngeal erythema. No thyromegaly. CARDIOVASCULAR: S1 and S2 present. No murmurs, rubs, or gallops. PULMONARY: Chest is clear to auscultation, no wheezing or crackles. ABDOMEN: Soft, nontender, nondistended, normoactive bowel sounds. No palpable organomegaly. MUSCULOSKELETAL: Right hip surgical incision seen , no erythema EXTREMITIES: No cyanosis, clubbing, or pedal edema. NEUROLOGICAL: Gross neurological examination did not reveal any focal deficits. SKIN: No rashes. Assessment and plan Severe right hip osteoarthritis BMI 32.6 Atrial fibrillation on Eliquis Type 2 diabetes Monitor vital signs Monitor CBC Monitor CMP Continue pain meds per orthopedics Continue DVT prophylaxis per orthopedics Resume home meds Labs and medication were reviewed.. Continue same treatment. Continue with symptomatic treatment. Resume home medication. Monitor labs and vitals. DVT and GI prophylaxis. Further recommendations as per clinical course of the patient Dictation was produced using [employer] dictation software. please excuse any grammatical, word or spelling errors. Past Medical History Past Medical History: Atrial Fibrillation, GERD/Reflux, Hyperlipidemia, Osteoarthritis (OA) Additional Past Medical History / Comment(s): irregular heart beat History of Any Multi-Drug Resistant Organisms: None Reported Past Surgical History: Cholecystectomy, Hysterectomy, Tonsillectomy, Tubal Ligation Additional Past Surgical History / Comment(s): basal and squamous cell skin cancer removed from right arm, lump removed from left hip area, RIGHT TOTAL HIP 02/23/23 Past Anesthesia/Blood Transfusion Reactions: Previous Problems w/ Anesthesia, Postoperative Nausea & Vomiting (PONV) Additional Past Anesthesia/Blood Transfusion Reaction / Comm: takes a long time to wake up Past Psychological History: No Psychological Hx Reported Smoking Status: Never smoker Past Alcohol Use History: None Reported Past Drug Use History: None Reported - Past Family History Mother Family Medical History: Congestive Heart Failure (CHF), Diabetes Mellitus, Deep Vein Thrombosis (DVT) Additional Family Medical History / Comment(s): Lupus. Father Family Medical History: Myocardial Infarction ([place]) Medications and Allergies Home Medications Medication Instructions Recorded Confirmed Type Metoprolol Succinate (ER) [Toprol 12.5 mg PO QAM 03/14/14 02/23/23 History XL] Apixaban [Eliquis] 5 mg PO BID 02/19/23 02/23/23 History Cholecalciferol [Vitamin D3 (25 25 mcg PO DAILY 02/19/23 02/23/23 History Mcg = 1000 Iu)] Losartan Potassium 50 mg PO HS 02/19/23 02/23/23 History Omeprazole 20 mg PO QAM 02/19/23 02/23/23 History Rosuvastatin Calcium 5 mg PO HS 02/19/23 02/23/23 History Ventolin Hfa Inhaler (? Dose) 1 puff INHALATION DIRECTED PRN 02/19/23 02/23/23 History metFORMIN HCL 500 mg PO BID 02/19/23 02/23/23 History Docusate [Colace] 100 mg PO BID #60 capsule 02/23/23 Rx HYDROcodone/APAP 5-325MG [[place] 1 - 2 tab PO Q6HR PRN 7 Days #32 02/23/23 Rx 5-325] tab Omeprazole 40 mg PO DAILY 30 Days #30 cap 02/23/23 Rx HYDROcodone/APAP 7.5-325MG [[place] 1 - 2 each PO Q6HR PRN #42 tab 02/24/23 Rx 7.5-325] Allergies Allergy/AdvReac Type Severity Reaction Status Date / Time adhesive Allergy Severe Verified 02/23/23 06:25 Blisters cephalexin monohydrate Allergy Unknown Verified 02/23/23 06:25 [From Keflex] codeine Allergy Unknown Verified 02/23/23 06:25 iodine Allergy Blisters Verified 02/23/23 06:25 latex Allergy Blisters Verified 02/23/23 06:25 Penicillins Allergy Unknown Verified 02/23/23 06:25 shellfish derived [Shellfish] Allergy Nausea Verified 02/23/23 06:25 acetaminophen [From Tylenol] AdvReac Fluid Verified 02/23/23 06:25 Retention Wild Mushrooms Allergy Nausea Uncoded 02/23/23 06:25 Physical Exam Vitals: Vital Signs Temp Pulse Pulse Resp BP BP Pulse Ox 02/24/23 07:40 76 16 02/24/23 07:18 98.0 F 76 16 120/68 95 02/24/23 02:06 97.5 F L 66 17 120/69 97 02/23/23 19:44 97.6 F 69 18 148/84 92 L 02/23/23 14:50 98.3 F 65 16 133/77 98 02/23/23 14:35 65 18 141/84 97 Intake and Output 02/23/23 02/24/23 02/24/23 22:59 06:59 14:59 Intake Total 50 Output Total 440 90 Balance -390 -90 Intake: Intake, IV Titration 50 Amount ceFAZolin 2 gm In Sodium 50 Chloride 0.9% 50 ml @ 100 mls/hr IVPB Q8HR [facility] Rx# :[id number] Output: Drainage 140 90 Right Hip 140 90 Emesis 300 Other: Voiding Method Toilet Toilet # Voids 3 Results Labs: Abnormal Lab Results - Last 24 Hours (Table) 02/23/23 02/23/23 02/24/23 Range/Units 16:21 20:42 05:55 POC Glucose (mg/dL) 177 H 155 H 131 H (70-110) mg/dL
[2023-02-24 14:50] VITALS: BP 146/78; PULSE 97; RESP 15; TEMP 98
[2023-02-24] MEDS ORDERED: ATORVASTATIN 10 MG TAB PO SCH (21:00)
[2023-02-25 06:52] LABS: Basophils # (A) 0.03 X 10*3/uL (0.00-0.10); Basophils % (A) 0.2 %; Eosinophils # (A) 0 X 10*3/uL (0.04-0.35); Eosinophils % (A) 0 %; HCT 34.1 % (37.2-46.3); HGB 10.7 d/dL (12.0-15.0); Lymphocytes # (A) 1.01 X 10*3/uL (0.90-5.00); Lymphocytes % (A) 7.5 %; MCH 26.8 pg (27.0-32.0); MCHC 31.4 d/dL (32.0-37.0); MCV 85.3 FL (80.0-97.0); Mean Platelet Volume 11.5 FL (9.5-12.2); Monocytes # (A) 0.76 X 10*3/uL (0.20-1.00); Monocytes % (A) 5.6 %; NRBC Per 100 WBC 0 X 10*3/uL (0.00-0.01); Neutrophils # (A) 11.68 X 10*3/uL (1.80-7.70); Neutrophils % (A) 86.3 %; Platelet Count 193 X 10*3/uL (140-440); RDW 13.3 % (11.5-14.5); WBC 13.54 X 10*3/uL (4.50-10.00)
--- NOTE | 2023-02-25 17:26 | P.ANPRN ---
Procedure Note - Anesthesia - Nerve Block Performed Right Braeden Single Time Out Performed: Yes Date of Procedure: 02/23/23 Procedure Start Time: 07:10 Procedure Stop Time: 07:14 Location of Patient: PreOp Indication: Acute Post-Operative Pain, Requested by Surgeon Sedation Type: Sedate with meaningful contact maintained Preparation: Sterile Prep Position: Supine Needle Types: Pajunk Needle Gauge: 21 Ultrasound used to visualize needle placement: Yes Ultrasound used to observe medication spread: Yes Blood Aspirated: No Pain Paresthesia on Injection Noted: No Resistance on Injection: Normal Image Stored and Saved: Yes Events: Uneventful and Well Tolerated (Ropivacaine 0.5% 25 mL plus dexamethasone 4 mg)
== END 2023-02-24 16:33 | disposition home health service (06) ==
LOC: OR 05:38 → 4SSUR 10:05 → OR 02-24 16:33
PROVIDERS: ATTEND Orthopaedic Surgery
DX: M16.11 Unilateral primary osteoarthritis, right hip (principal); I48.91 Unspecified atrial fibrillation; E11.9 Type 2 diabetes mellitus without complications; K21.9 Gastro-esophageal reflux disease without esophagitis; E78.5 Hyperlipidemia, unspecified; Z79.01 Long term (current) use of anticoagulants; Z79.899 Other long term (current) drug therapy; Z79.84 Long term (current) use of oral hypoglycemic drugs; Z88.1 Allergy status to other antibiotic agents; Z91.040 Latex allergy status; Z88.0 Allergy status to penicillin; Z91.013 Allergy to seafood; Z88.6 Allergy status to analgesic agent; Z91.018 Allergy to other foods; Z88.8 Allergy status to other drugs, medicaments and biological substances; Z85.828 Personal history of other malignant neoplasm of skin; Z88.5 Allergy status to narcotic agent
CPT/HCPCS: 27130; 64450; 97116; 97161; 64447; 85025; 83036; 73501; C1776; C1713; J2250; J0171; J0330; J1100 ×2; J2710; J0690 ×2; J2405; J3010; J3490; J2795; J1885; J2704; J2001; 86850; 86900; 86901

== ENCOUNTER 2023-02-27 23:55 | Emergency (ER) | payer MEDICARE, OTHER ==
[2023-02-28 00:13] VITALS: RESP 18
[2023-02-28] MEDS ORDERED: SODIUM CHLORIDE 0.9% 1,000 ML IV STA (00:26)
[2023-02-28 00:56] LABS: Basophils % (A) 0 %; Eosinophils # (A) 0.1 k/uL (0-0.7); Eosinophils % (A) 2 %; Lymphocytes % (A) 14 %; MCH 27.7 pg (25.0-35.0); MCHC 33.3 g/dL (31.0-37.0); MCV 83.2 fL (80.0-100.0); Mean Platelet Volume 7.9; Monocytes # (A) 0.5 k/uL (0-1.0); Monocytes % (A) 7 %; Neutrophils # (A) 5.4 k/uL (1.3-7.7); Neutrophils % (A) 76 %; Platelet Count 217 k/uL (150-450); RBC 3.97 m/uL (3.80-5.40); RDW 13.5 % (11.5-15.5); WBC 7.1 k/uL (3.8-10.6)
[2023-02-28 01:06] LABS: ALT 204 U/L (4-34); AST 152 U/L (14-36); African American GFR (CKD) >90 (>60 ml/min/1.73 sqM); Albumin 3.3 g/dL (3.5-5.0); Alkaline Phosphatase 125 U/L (38-126); Anion Gap 7 mmol/L; Blood Urea Nitrogen 10 mg/dL (7-17); Calcium 8.9 mg/dL (8.4-10.2); Carbon Dioxide 30 mmol/L (22-30); Chloride 97 mmol/L (98-107); Glucose 154 mg/dL (74-99); Non-African American GFR(CKD) 89 (>60 ml/min/1.73 sqM); Potassium 4.2 mmol/L (3.5-5.1); Sodium 134 mmol/L (137-145); Total Bilirubin 1.3 mg/dL (0.2-1.3); Total Protein 5.5 g/dL (6.3-8.2)
[2023-02-28 01:26] LABS: INR 0.9 (<1.2); Partial Thromboplastin Time 22.2 sec (22.0-30.0); Prothrombin Time 9.7 sec (9.0-12.0)
[2023-02-28] MEDS ORDERED: FAMOTIDINE 20 MG/2 ML VIAL IV STA (01:36)
[2023-02-28] MEDS ORDERED: diphenhydrAMINE 50 MG/ML 1 ML VIAL IVP STA (01:36)
[2023-02-28] MEDS ORDERED: methylPREDNISolone SOD SUCCI 125 MG/2 ML VIAL IV STA (01:36)
--- NOTE | 2023-02-28 02:55 | XR ---
EXAM: XR Chest, 1 View CLINICAL HISTORY: ITS.REASON XR Reason: syncope TECHNIQUE: Frontal view of the chest. COMPARISON: No relevant prior studies available. FINDINGS: Lungs: Unremarkable. No consolidation. Pleural space: Unremarkable. No pneumothorax. Heart: Unremarkable. No cardiomegaly. Mediastinum: Unremarkable. Bones/joints: Unremarkable. IMPRESSION: Normal chest x-ray.
--- NOTE | 2023-02-28 03:07 | ED ---
General Adult HPI - General Source: patient Mode of arrival: EMS Limitations: no limitations <Fred Rodriguez - Last Filed: 02/28/23 04:29> <Dede Brewster - Last Filed: 02/28/23 05:57> - General Chief complaint: Syncope Stated complaint: Syncope Time Seen by Provider: 02/28/23 00:14 - History of Present Illness Initial comments: 77-year-old female presenting with chief complaint of syncope. Patient had a hi p replacement performed 3 days ago. She reports that this evening she was using the bathroom when she began to feel faint. Her was able to come into the bathroom and help her prop herself up. Patient didn't lose consciousness but did not hit her head according to . He states that she was also very pale. Patient denies any chest pain, difficulty breathing, palpitations, nausea, vomiting, abdominal pain, headache, vision or hearing changes. She reports that she is feeling much better at this time. Patient is currently on Lovenox. (Fred Rodriguez) - Related Data Home Medications Medication Instructions Recorded Confirmed Metoprolol Succinate (ER) [Toprol 12.5 mg PO QAM 03/14/14 02/23/23 XL] Apixaban [Eliquis] 5 mg PO BID 02/19/23 02/23/23 Cholecalciferol [Vitamin D3 (25 25 mcg PO DAILY 02/19/23 02/23/23 Mcg = 1000 Iu)] Losartan Potassium 50 mg PO HS 02/19/23 02/23/23 Omeprazole 20 mg PO QAM 02/19/23 02/23/23 Rosuvastatin Calcium 5 mg PO HS 02/19/23 02/23/23 Ventolin Hfa Inhaler (? Dose) 1 puff INHALATION DIRECTED PRN 02/19/23 02/23/23 metFORMIN HCL 500 mg PO BID 02/19/23 02/23/23 Previous Rx's Medication Instructions Recorded Docusate [Colace] 100 mg PO BID #60 capsule 02/23/23 HYDROcodone/APAP 5-325MG [[place] 1 - 2 tab PO Q6HR PRN 7 Days #32 02/23/23 5-325] tab Omeprazole 40 mg PO DAILY 30 Days #30 cap 02/23/23 HYDROcodone/APAP 7.5-325MG [[place] 1 - 2 each PO Q6HR PRN #42 tab 02/24/23 7.5-325] Allergies Allergy/AdvReac Type Severity Reaction Status Date / Time adhesive Allergy Severe Verified 02/23/23 06:25 Blisters cephalexin monohydrate Allergy Unknown Verified 02/23/23 06:25 [From Keflex] codeine Allergy Unknown Verified 02/23/23 06:25 iodine Allergy Blisters Verified 02/23/23 06:25 latex Allergy Blisters Verified 02/23/23 06:25 Penicillins Allergy Unknown Verified 02/23/23 06:25 shellfish derived [Shellfish] Allergy Nausea Verified 02/23/23 06:25 acetaminophen [From Tylenol] AdvReac Fluid Verified 02/23/23 06:25 Retention Wild Mushrooms Allergy Nausea Uncoded 02/23/23 06:25 Review of Systems ROS Other: All systems not noted in ROS Statement are negative. <Fred Rodriguez - Last Filed: 02/28/23 04:29> ROS Other: All systems not noted in ROS Statement are negative. <Dede Brewster - Last Filed: 02/28/23 05:57> ROS Statement: Those systems with pertinent positive or pertinent negative responses have been documented in the HPI. 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 Father Family Medical History: Myocardial Infarction ([place]) <Fred Rodriguez - Last Filed: 02/28/23 04:29> General Exam Limitations: no limitations General appearance: alert, in no apparent distress Head exam: Present: atraumatic, normocephalic, normal inspection Eye exam: Present: normal appearance, EOMI Neck exam: Present: normal inspection, full ROM Respiratory exam: Present: normal lung sounds bilaterally. Absent: respiratory distress, wheezes, rales, rhonchi, stridor Cardiovascular Exam: Present: regular rate, normal rhythm, normal heart sounds. Absent: systolic murmur, diastolic murmur, rubs, gallop, clicks GI/Abdominal exam: Present: soft. Absent: distended, tenderness, guarding, rebound, rigid Neurological exam: Present: alert, oriented X3 Expanded Patient oriented to: Present: person, place, time Speech: Present: fluid speech Cranial nerves: EOM's Intact: Normal Motor strength exam: RUE: 5, LUE: 5, RLE: 5, LLE: 5 Eye Response: (4) open spontaneously Motor Response: (6) obeys commands Verbal Response: (5) oriented Sarah Total: 15 Psychiatric exam: Present: normal affect, normal mood Skin exam: Present: warm, dry, intact, normal color. Absent: rash <Fred Rodriguez - Last Filed: 02/28/23 04:29> Course Vital Signs 02/27/23 02/28/23 02/28/23 23:55 00:02 01:00 Temperature 98.6 F Pulse Rate 75 Respiratory 18 Rate Blood Pressure 141/63 141/63 141/63 O2 Sat by Pulse 98 98 Oximetry 02/28/23 02/28/23 02/28/23 02:00 02:55 03:00 Temperature 98.2 F Pulse Rate 86 Respiratory Rate Blood Pressure 151/72 O2 Sat by Pulse 98 95 Oximetry EKG Findings - EKG Comments: EKG Findings:: Sinus rhythm ventricular rate 74. [place] interval 166. QRS 98. QT 361. QTc 388. <Fred Rodriguez - Last Filed: 02/28/23 04:29> Medical Decision Making - Lab Data Result diagrams: 02/28/23 00:45 02/28/23 00:45 <Fred Rodriguez - Last Filed: 02/28/23 04:29> - Lab Data Result diagrams: 02/28/23 00:45 02/28/23 00:45 <Dede Brewster P - Last Filed: 02/28/23 05:57> - Medical Decision Making Was pt. sent in by a medical professional or institution (, [facility], [facility], urgent care, hospital, or care home...) When possible be specific @ -No Did you speak to anyone other than the patient for history (EMS, parent, family, police, friend...)? What history was obtained from this source @ -No Did you review nursing and triage notes (agree or disagree)? Why? @ -I reviewed and agree with nursing and triage notes Were old charts reviewed (outside hosp., previous admission, EMS record, old EKG, old radiological studies, urgent care reports/EKG's, care home records)? Report findings @ -No old charts were reviewed Differential Diagnosis (chest pain, altered mental status, abdominal pain women, abdominal pain men, vaginal bleeding, weakness, fever, dyspnea, syncope, headache, dizziness, GI bleed, back pain, seizure, CVA, palpatations, mental health, musculoskeletal)? @ -MDM Differential Syncope: Valvular disease, hypertrophic cardiomyopathy, pulmonary embolism, tamponade, tachycardia, bradycardia, [place], hypovolemia, hemorrhage, dissection, anemia, intracranial hemorrhage, seizure, hypoglycemia, carbon monoxide poisoning… this is not meant to be an all-inclusive list. EKG interpreted by me (3pts min.). @ -As above X-rays interpreted by me (1pt min.). @ -X-ray shows no acute process. CT interpreted by me (1pt min.). @ U/S interpreted by me (1pt. min.). @ -None done What testing was considered but not performed or refused? (CT, X-rays, U/S, labs)? Why? @ -None What meds were considered but not given or refused? Why? @ -None Did you discuss the management of the patient with other professionals (professionals i.e. , [facility], [facility], lab, RT, psych nurse, social services specialist, tank builder supervisor, teacher, targeting acquisition officer, case making machine operator)? Give summary @ -No Was smoking cessation discussed for >3mins.? @ -No Was critical care preformed (if so, how long)? @ -No Were there social determinants of health that impacted care today? How? (Homelessness, low income, unemployed, alcoholism, drug addiction, transportation, low edu. Level, literacy, decrease access to med. care, long-term, rehab)? @ -No Was there de-escalation of care discussed even if they declined (Discuss DNR or withdrawal of care, Hospice)? DNR status @ -No What co-morbidities impacted this encounter? (DM, HTN, Smoking, COPD, CAD, Cancer, CVA, ARF, Chemo, Hep., AIDS, mental health diagnosis, sleep apnea, morbid obesity)? @ -None Was patient admitted / discharged? Hospital course, mention meds given and route , prescriptions, significant lab abnormalities, going to OR and other pertinent info. @ -77-year-old female presenting with chief complaint of syncope. Patient had a recent hip replacement performed 3 days ago. Syncopal episode occurred this evening. At times presentation patient reports that her symptoms have significantly improved. Physical examination is performed, no focal neurological deficits. Elevated AST and ALT, likely due to recent anesthesia and stress of recent surgery. Negative EKG and chest x-ray. Negative troponin. D-dimer is 1.56. Chest CTA report is pending at this time. Patient is signed out to my attending Dr. Brewster for further management and disposition. (Fred Rodriguez) Was patient admitted / discharged? Hospital course, mention meds given and route, prescriptions, significant lab abnormalities, going to OR and other pertinent info. Discharge, patient CTA was unremarkable. Vital signs were unremarkable labs were at baseline aside from mild transaminitis. These results were discussed with the patient who did admit that this near-syncopal episode occurred after straining to have a bowel movement. I discussed with her the need to take stool softeners while on pain medication, advised she can add MiraLAX to her bowel regimen. Recommended continued oral hydration. I also advised that her liver enzymes were mildly elevated this is likely reactive to stress of surgery and possibly anesthetic. Recommend she follow with her primary care for repeat labs in approximately one month. Close return parameters were discussed with questions pertaining care were answered the best my ability and patient was discharged home in stable condition. Diagnosis/symptom? @ Vasovagal syncope related to straining to have a bowel movement Acute, or Chronic, or Acute on Chronic? @ -default Uncomplicated (without systemic symptoms) or Complicated (systemic symptoms)? @ -default Side effects of treatment? @ -none Exacerbation, Progression, or Severe Exacerbation] @ -no Poses a threat to life or bodily function? @ -no (Dede Brewster) - Lab Data Lab Results 02/28/23 02/28/23 02/28/23 Range/Units 00:45 00:45 00:45 WBC 7.1 (3.8-10.6) k/uL RBC 3.97 (3.80-5.40) m/uL Hgb 11.0 L (11.4-16.0) gm/dL Hct 33.0 L (34.0-46.0) % MCV 83.2 (80.0-100.0) fL MCH 27.7 (25.0-35.0) pg MCHC 33.3 (31.0-37.0) g/dL RDW 13.5 (11.5-15.5) % Plt Count 217 (150-450) k/uL MPV 7.9 Neutrophils % 76 % Lymphocytes % 14 % Monocytes % 7 % Eosinophils % 2 % Basophils % 0 % Neutrophils # 5.4 (1.3-7.7) k/uL Lymphocytes # 1.0 (1.0-4.8) k/uL Monocytes # 0.5 (0-1.0) k/uL Eosinophils # 0.1 (0-0.7) k/uL Basophils # 0.0 (0-0.2) k/uL PT 9.7 (9.0-12.0) sec INR 0.9 (<1.2) APTT 22.2 (22.0-30.0) sec D-Dimer 1.56 H (<0.60) mg/L FEU Sodium 134 L (137-145) mmol/L Potassium 4.2 (3.5-5.1) mmol/L Chloride 97 L (98-107) mmol/L Carbon Dioxide 30 (22-30) mmol/L Anion Gap 7 mmol/L BUN 10 (7-17) mg/dL Creatinine 0.61 (0.52-1.04) mg/dL Est GFR (CKD-EPI)AfAm >90 (>60 ml/min/1.73 sqM) Est GFR (CKD-EPI)NonAf 89 (>60 ml/min/1.73 sqM) Glucose 154 H (74-99) mg/dL Calcium 8.9 (8.4-10.2) mg/dL Total Bilirubin 1.3 (0.2-1.3) mg/dL AST 152 H (14-36) U/L ALT 204 H (4-34) U/L Alkaline Phosphatase 125 (38-126) U/L Troponin I (0.000-0.034) ng/mL Total Protein 5.5 L (6.3-8.2) g/dL Albumin 3.3 L (3.5-5.0) g/dL 02/28/23 Range/Units 00:45 WBC (3.8-10.6) k/uL RBC (3.80-5.40) m/uL Hgb (11.4-16.0) gm/dL Hct (34.0-46.0) % MCV (80.0-100.0) fL MCH (25.0-35.0) pg MCHC (31.0-37.0) g/dL RDW (11.5-15.5) % Plt Count (150-450) k/uL MPV Neutrophils % % Lymphocytes % % Monocytes % % Eosinophils % % Basophils % % Neutrophils # (1.3-7.7) k/uL Lymphocytes # (1.0-4.8) k/uL Monocytes # (0-1.0) k/uL Eosinophils # (0-0.7) k/uL Basophils # (0-0.2) k/uL PT (9.0-12.0) sec INR (<1.2) APTT (22.0-30.0) sec D-Dimer (<0.60) mg/L FEU Sodium (137-145) mmol/L Potassium (3.5-5.1) mmol/L Chloride (98-107) mmol/L Carbon Dioxide (22-30) mmol/L Anion Gap mmol/L BUN (7-17) mg/dL Creatinine (0.52-1.04) mg/dL Est GFR (CKD-EPI)AfAm (>60 ml/min/1.73 sqM) Est GFR (CKD-EPI)NonAf (>60 ml/min/1.73 sqM) Glucose (74-99) mg/dL Calcium (8.4-10.2) mg/dL Total Bilirubin (0.2-1.3) mg/dL AST (14-36) U/L ALT (4-34) U/L Alkaline Phosphatase (38-126) U/L Troponin I <0.012 (0.000-0.034) ng/mL Total Protein (6.3-8.2) g/dL Albumin (3.5-5.0) g/dL Disposition <Fred Rodriguez - Last Filed: 02/28/23 04:29> Is patient prescribed a controlled substance at d/c from ED?: No <Dede Brewster - Last Filed: 02/28/23 05:57> Clinical Impression: Near syncope Disposition: HOME SELF-CARE Condition: Stable Instructions (If sedation given, give patient instructions): Near Syncope (ED) Referrals: Esme House MD [Primary Care Provider] - 1-2 days
--- NOTE | 2023-02-28 05:20 | CT ---
EXAM: CT Angiography Chest With Intravenous Contrast CLINICAL HISTORY: ITS.REASON CT Reason: syncope TECHNIQUE: Axial computed tomographic angiography images of the chest with intravenous contrast. CTDI is 31.3 mGy and DLP is 795.1 mGy-cm. This CT exam was performed using one or more of the following dose reduction techniques: automated exposure control, adjustment of the mA and/or kV according to patient size, and/or use of iterative reconstruction technique. MIP reconstructed images were created and reviewed. COMPARISON: 11/02/2015 FINDINGS: Pulmonary arteries: Unremarkable. No pulmonary embolism. Aorta: No acute findings. No thoracic aortic aneurysm. Lungs: Unremarkable. No mass. No consolidation. Pleural space: Unremarkable. No significant effusion. No pneumothorax. Heart: Unremarkable. No cardiomegaly. No significant pericardial effusion. No evidence of RV dysfunction. Bones/joints: No acute fracture. No dislocation. Soft tissues: Fatty atrophy of the pancreas. Postoperative changes prior cholecystectomy fatty infiltration of the liver . Lymph nodes: Unremarkable. No enlarged lymph nodes. Kidneys and ureters: 1.8 cm left upper pole renal mass which measures both at and soft tissue density. This is similar in size when compared to prior exam of the degree of soft tissue enhancement is increased. IMPRESSION: 1. 1.8 cm fat-containing mass upper pole left kidney likely representing a hemangioma. The amount of soft tissue prominence however has increased since prior exam. Renal ultrasound recommended to further assess this lesion. 2. No PE
[2023-02-28 06:33] VITALS: BP 147/73; PULSE 90; TEMP 98.8
== END 2023-02-28 06:22 | disposition home or self-care (01) ==
LOC: EC 23:55
DX: R55 Syncope and collapse (principal); I48.91 Unspecified atrial fibrillation; K21.9 Gastro-esophageal reflux disease without esophagitis; E78.5 Hyperlipidemia, unspecified; M19.90 Unspecified osteoarthritis, unspecified site; Z79.899 Other long term (current) drug therapy; Z79.1 Long term (current) use of non-steroidal anti-inflammatories (NSAID); Z79.01 Long term (current) use of anticoagulants; Z88.0 Allergy status to penicillin; Z88.1 Allergy status to other antibiotic agents; Z88.6 Allergy status to analgesic agent; Z90.49 Acquired absence of other specified parts of digestive tract; Z91.040 Latex allergy status; Z91.013 Allergy to seafood; Z91.041 Radiographic dye allergy status; Z88.8 Allergy status to other drugs, medicaments and biological substances; Z91.018 Allergy to other foods
CPT/HCPCS: 36415; 93005; 85379; 80053; 84484; 85025; 85610; 85730; 71045; 71275; 99285; 96374; 96375 ×2; 96361; J1200; J2930; J3490; Q9967

== ENCOUNTER → 2023-06-29 | Outpatient (CLI) | payer MEDICARE, OTHER ==
--- NOTE | 2023-06-29 12:39 | BD ---
EXAMINATION TYPE: Axial Bone Density DATE OF EXAM: 06/29/2023 CLINICAL HISTORY: 77 years old Female. ICD-10 CODE: N95.8 OTHER SPECIFIED MENOPAUSAL Height: 63.5 Weight: 192 FRAX RISK QUESTIONS: Family History (Parent hip fracture): no History of Fracture in Adulthood: yes Secondary Osteoporosis: no RISK FACTORS HISTORY OF: Surgery to Hip(right): yes When: 2022 MEDICATIONS: no EXAM MEASUREMENTS: Bone mineral densitometry was performed using the [employer] System. Bone mineral density as measured about the Lumbar spine is: ----- L1-L4(G/cm2): 1.608 T Score Values are as follows: ----- L1: 1.9 ----- L2: 4.3 ----- L3: 4.5 ----- L4: 3.6 ----- L1-L4: 3.6 Z Score Values are as follows: ----- L1: 2.9 ----- L2: 5.4 ----- L3: 5.5 ----- L4: 4.6 ----- L1-L4: 4.6 Bone mineral density has: Decreased -2.8% since study of: 02/18/2021 Bone mineral density about the L hip (g/cm2): 1.197 T Score values are as follows: -----L Neck: -0.4 -----L Total: 1.5 Z Score values are as follows: -----L Neck: 1.1 -----L Total: 2.7 Bone mineral density has: Decreased -2.3% since study of: 02/18/2021 FRAX%s: The graph provided illustrates a 12.3% chance for a major osteoporotic fx and a 1.2% chance f or the hips probability for fx in 10 years time. IMPRESSION: Normal (Values between +1 and -1 indicate normal bone mass). Consider repeating this study in 5 year s or sooner if there is some new clinical indication. NOTE: T-SCORE=SD OF THE YOUNG ADULT MEAN.
--- NOTE | 2023-07-02 07:28 | MM ---
Reason for Exam: Screening (asymptomatic). Last mammogram was performed 1 year(s) and 3 month(s) ago. Patient History: Menarche at age 14. First Full-Term at age 26. Left ovary removed at age 67. Right ovary removed at age 67. Hysterectomy at age 67. Postmenopausal. Patient has history of breast feeding. Other cancer, age 68. Paternal grandmother had breast cancer. Paternal cousin had breast cancer. Risk Values: Ava 5 year model risk: 1.6%. NCI Lifetime model risk: 3.4%. Prior Study Comparison: 05/20/2018 Bilateral Screening Mammogram, [facility]. 02/03/2021 Bilateral Screening Mammogram, [facility]. 03/30/2022 Bilateral MG 3D screening mammo w/cad, [facility]. Tissue Density: The breast tissue is almost entirely fat. Findings: Analyzed By CAD. There is no suspicious group of microcalcifications or new suspicious mass. Overall Assessment: Negative, BI-RAD 1 Management: Screening Mammogram of both breasts in [address] [facility] will attempt to contact patient to return for supplemental views and ultrasound if indicated. Patient should continue monthly self-breast exams. A clinical breast exam by your physician is recommended on an annual basis. This exam should not preclude additional follow-up of suspicious palpable abnormalities. Note on Ava scores and lifetime risk: 1. A Ava score greater than 3% is considered moderate risk. If this is the case, consider specialist referral to assess eligibility for a risk reducing agent. 2. If overall lifetime risk for the development of breast cancer is 20% or higher, the patient may qualify for future screening with alternating mammogram and breast MRI. Electronically signed and approved by: Liu Ureña DO
== END | disposition home or self-care (01) ==
LOC: RADMAMWWP 08:42
PROVIDERS: ATTEND Internal Medicine
DX: Z12.31 Encounter for screening mammogram for malignant neoplasm of breast (principal); N95.8 Other specified menopausal and perimenopausal disorders; Z80.3 Family history of malignant neoplasm of breast
CPT/HCPCS: 77063; 77067; 77080

== ENCOUNTER → 2023-07-25 | Outpatient (CLI) | payer MEDICARE, OTHER ==
--- NOTE | 2023-07-25 15:33 | CT ---
EXAMINATION TYPE: CT right knee - [facility] Protocol DATE OF EXAM: 07/25/2023 COMPARISON: None HISTORY: 77-year-old female M2 5.561, right knee isis CT DLP: 827 mGycm. Automated exposure control for dose reduction was used. TECHNIQUE: CT of the right knee for surgical planning purposes. Additional scanning through the pelvi s and both ankles with coronal and sagittal reconstructions. FINDINGS: There is some heterotopic ossification at the anterior right hip that could be secondary to the patie nt's right hip arthroplasty versus old avulsion fracture at the rectus femoris origin. Clinically cor relate. Uterus surgically absent. No abnormal fluid collection in the pelvis. There is tricompartmental degenerative change at the right knee, severe in the medial compartment and moderate within the patellofemoral and lateral compartments. Small knee joint effusion. No sizable B yonathan's cyst. Possible torn and extruded medial meniscus. Views of the ankles show no gross abnormality. There are small plantar heel spurs. IMPRESSION: 1. Tricompartmental osteoarthrosis right knee, severe in the medial compartment. 2. Imaging for surgical planning purposes.
== END | disposition home or self-care (01) ==
LOC: RADCTMAIN 11:47
PROVIDERS: ATTEND Orthopaedic Surgery
DX: M17.11 Unilateral primary osteoarthritis, right knee (principal)

== ENCOUNTER 2023-08-31 05:41 | Day surgery (SDC) | payer MEDICARE, OTHER ==
[2023-08-24 12:16] VITALS: BMI 32.4
[2023-08-31] MEDS ORDERED: TRANEXAMIC 1,000 MG/100ML-NACL 1,000 MG in SALINE 1 100ML.BAG IV PRN (06:00)
[2023-08-31] MEDS ORDERED: TRANEXAMIC 1,000 MG/100ML-NACL 1,000 MG in SALINE 1 100ML.BAG IVPB PRN (06:00)
[2023-08-31] MEDS ORDERED: FAMOTIDINE 20 MG/2 ML VIAL IVP PRN (06:00)
[2023-08-31] MEDS: ACETAMINOPHEN TAB 500 MG TAB PO PRN (06:48)
[2023-08-31] MEDS: DOCUSATE 100 MG CAP PO PRN (06:48)
[2023-08-31] MEDS: oxyCODONE ER 10 MG TAB.ER.12H PO PRN (06:48)
[2023-08-31] MEDS: LIDOCAINE 1% (10MG/ML) FOR IV START INTRADERMA PRN (06:51)
[2023-08-31] MEDS: LACTATED RINGERS 1,000 ML IV SCH (06:51)
[2023-08-31] MEDS: DEXAMETHASONE SOD PHOSPHATE 10 MG/ML 1 ML VIAL IV PRN (06:52)
[2023-08-31] MEDS: KETOROLAC 15 MG/ML 1 ML VIAL IVP PRN (06:53)
[2023-08-31] MEDS: ONDANSETRON 4 MG/2 ML VIAL IVP PRN ×2 (06:54→13:48)
[2023-08-31 06:58] LABS: Glucose,Whole Blood 120 mg/dL (70-110)
[2023-08-31] MEDS ORDERED: HYDROmorphone 0.5 MG/0.5 ML SYRINGE IVP PRN ×2 (07:00→09:50)
[2023-08-31] MEDS: MIDAZOLAM 2 MG/2 ML VIAL IVP ONE (07:14)
[2023-08-31] MEDS ORDERED: SUCCINYLCHOLINE CHLORIDE 200 MG/10 ML VIAL IV ONE (07:30)
[2023-08-31] MEDS ORDERED: PROPOFOL 10 MG/ML 20 ML VIAL IV ONE (07:30)
[2023-08-31] MEDS ORDERED: ROPIVACAINE 5 MG/ML 30 ML VIAL ONE (07:30)
[2023-08-31] MEDS ORDERED: GLYCOPYRROLATE 0.2 MG/ML 2 ML VIAL ONE (07:30)
[2023-08-31] MEDS ORDERED: ROCURONIUM 10 MG/ML (5 ML VIAL) IV ONE (07:30)
[2023-08-31] MEDS ORDERED: HYDROmorphone (PF) 1 MG/ML ONE (07:30)
[2023-08-31] MEDS ORDERED: LIDOCAINE 1% INJ 10MG/ML (20 ML MDV) ONE (07:30)
[2023-08-31] MEDS ORDERED: TRANEXAMIC 1,000 MG/100ML-NACL PREMIX BAG ONE (07:30)
[2023-08-31] MEDS ORDERED: fentaNYL (PF) 50 MCG/ML 2 ML AMP ONE (07:30)
[2023-08-31] MEDS ORDERED: NEOSTIGMINE 1 MG/ML 10 ML VIAL ONE (07:30)
[2023-08-31] MEDS: ROPIVACAINE/EPI/CLONIDINE/KET 50 ML SYRINGE MISCELLANE PRN (08:17)
[2023-08-31] MEDS: LACTATED RINGERS 1,000 ML IV ONE (09:22)
[2023-08-31] MEDS ORDERED: HYDROcodone/APAP 5-325MG 1 EACH TAB PO PRN (09:50)
[2023-08-31] MEDS ORDERED: MAGNESIUM HYDROXIDE 2,400 MG/30 ML CUP PO PRN (09:50)
[2023-08-31] MEDS ORDERED: hydrOXYzine pamoate 25 MG CAP PO PRN (09:50)
[2023-08-31] MEDS ORDERED: NALOXONE 0.4 MG/ML 1 ML VIAL IV PRN (09:50)
[2023-08-31] MEDS ORDERED: bisacodyL 10 MG SUPP RECTAL PRN (09:50)
--- NOTE | 2023-08-31 09:50 | P.OP ---
Date of Procedure: 08/31/23 Preoperative Diagnosis: severe right knee osteoarthritis Postoperative Diagnosis: same Procedure(s) Performed: 1. Right total knee arthroplasty 2. Computer assisted musculoskeletal navigation using CT/MRI images Implants: 1. [place] [employer] CR Femur Size #3 2. [place] [employer] Iva Tibial Base Size #3 3. [place] [employer] CS poly Size #9 4. [place] [employer] all poly patella, Size #29 Anesthesia: CARLAA, regional Surgeon: Dennis Grande Truck Crane Operator Helper #1: Obi Ramirez Estimated Blood Loss (ml): 100 IV fluids (ml): 800 Pathology: none sent Condition: stable Disposition: PACU Indications for Procedure: I met with the patient preoperatively in the office setting and discussed treatment of their symptomatic knee arthritis. They failed a long course of nonsurgical treatment and elected to proceed with an elective total knee replacement. I discussed the potential risks and complications at length and gave them ample time to ask questions. Risks discussed included: risks from anesthesia, superficial site surgical infection, acute and/or chronic periprosthetic joint infection, delayed wound healing, drainage, wound necrosis, instability, stiffness, stiffness requiring manipulation and/or revision surgery, damage to local blood vessels or nerves, aseptic loosening of the implants, extensor mechanism issues including disruption, patellar maltracking, avascular necrosis etc., continued or worsened knee pain, generalized dissatisfaction with surgical outcome, need for revision surgery, an inability to regain preinjury level of function, DVT, PE, other medical complications, and possibly loss of life or limb. The patient voiced their understanding that while these are the most common complications other less common complications are possible. They provided both their verbal and written consent to go forward with surgery. Operative Findings: severe right knee osteoarthritis Description of Procedure: The patient was identified in preoperative holding and the correct operative extremity was verified and marked with a marker. I reviewed the consent form with the patient at length. All of their questions were answered. The patient was given a block by anesthesia. They were then brought back to the operating room. They were transferred onto the operating room table where a general anesthetic, preoperative antibiotics, and tranexamic acid were administered by anesthesia. A tourniquet was applied to the proximal aspect of the operative extremity. The contralateral extremity was padded under the heel and secured to the operating room table with a nonsterile blue towel and tape. The ipsilateral arm was carefully draped across the patient's chest and secured with a pillow and foam. A post was applied over the lateral aspect of the ipsilateral thigh and a bolster was placed under the ipsilateral foot. I verified that the operative extremity was stable and the knee was flexed to 90. The operative extremity was then placed in a leg edwards, nonsterile drapes were applied, and the extremity was prepped and draped sterilely in the standard sterile fashion. Prior to starting surgery timeout was performed identifying the correct patient, operative extremity, and procedure. The leg was then elevated, exsanguinated with an Esmarch bandage, and the tourniquet was inflated. An anterior midline incision was made sharply with a scalpel. Once I had dissected deep to the superficial fascial layer medial and lateral flaps were elevated. A medial parapatellar arthrotomy was created. Upon opening the knee joint there were diffuse arthritic changes in all 3 compartments. The anterior horn of the medial meniscus were sharply released and a medial release was performed around the posterior medial corner of the knee to facilitate retractor placement. The fat pad was excised with electrocautery. The patella was found to be severely arthritic and a provisional cut was made with a sagittal saw to facilitate mobilization of the extensor mechanism during the procedure. Remnants of the ACL and PCL were then excised from the notch. 4 mm pins were then placed within the incision in the medial distal femur and proximal tibia. Arrays were applied to the pins and I verified they were completely tightened. The knee was then registered with the Leaderz robot and manipulations in implant position were made to balance the knee and opitmize implant position. Using the Ignacio robotic saw all cuts were made in accordance with our plan. After all bony fragments had been removed the cuts were verified with the planar probe. The tibia was then subluxed forward and sized. The knee was brought into flexion and a lamina awning hanger helper was placed to allow removal of the meniscal remnants both medially and laterally as well as posterior osteophytes. Local anesthetic was then infiltrated around the joint capsule. Trial implants were then placed within the knee. Range of motion and collateral ligament tension was then evaluated. Adjustments in implant size and position were then made accordingly. Once the knee was felt to be appropriately balanced the Ignacio pins were removed. The patella was then recut, sized, and punched. A trial patellar button was then placed. With the trial components in place, the patella tracked midline. The femur was then drilled and the trial component removed. The trial tibial component was then appropriately rotated, pinned, and prepared for the keel. All trial components were then removed from the knee. The knee was thoroughly irrigated with pulsatile lavage. Cement was prepared via vacuum mixing in a bowl on the back table. I then hand pressurized cement into the femur and tibia and placed the implants beginning with the tibial base tray and poly liner, femoral component, and finally the patellar button. All extruded cement was removed including from the pin sites. Once the cement had hardened the knee was evaluated one final time with the final polyethylene liner in place. The knee had full extension and flexion and felt stable to varus and valgus stress throughout the arc of motion. The tourniquet was released and with the tourniquet down the patella tracked midline. All bleeders were controlled with electrocautery. The knee was then soaked for 3 minutes with a dilute Betadine soak. The knee was thoroughly irrigated using 3 L of sterile saline and pulsatile lavage. The extensor mechanism was then reapproximated using pop off Vicryl sutures followed by a running barbed suture. The knee was then closed in layers with a 0 strata fix for the deep fascial layer, 2-0 strata fix for the superficial subcutaneous layer and Monocryl and Steri-Strips for the skin. A sterile dressing was applied. I verified that all instrument, sponge, and sharp counts were correct. The patient was then transferred off the operating room table, extubated, and brought to recovery having tolerated the procedure well. Andrade COLE was required as a skilled financial assistant due to the complexity of surgery for patient positioning, draping, exposure, retraction, closure of wound, and application of dressing. PLAN: The patient can weight-bear as tolerated on the operative extremity. DVT prophylaxis with aspirin 81 mg twice a day based on preoperative risk stratification. Internal medicine for perioperative medical management. 2 doses of post-operative antibiotics. Physical therapy for gait training. Follow-up in the office in 2 weeks for wound check and x-rays of the knee including an AP and lateral. Due to the patient's history of adhesive ALLERGIES and concern for wound issues she'll be sent home on doxycycline until her incision heals.
[2023-08-31 10:44] LABS: Glucose,Whole Blood 210 mg/dL (70-110)
--- NOTE | 2023-08-31 10:58 | XR ---
EXAMINATION TYPE: XR knee limited RT DATE OF EXAM: 08/31/2023 10:34 AM CLINICAL INDICATION:Female, 77 years old with history of Evaluation for Postop abnormality and alignm ent; [facility] COMPARISON: None. TECHNIQUE: XR knee limited RT; examined in Frontal, lateral projections. FINDINGS: Status post total knee arthroplasty changes with hardware in appropriate alignment and in tact. No evidence of fracture. Subcutaneous lucencies and lucencies within the joint consistent with surgical changes. IMPRESSION: Status post total knee arthroplasty changes with hardware intact and appropriate alignment. No fractu res identified.
[2023-08-31] MEDS: SODIUM CHLORIDE 0.9% 1,000 ML IV SCH (13:48)
--- NOTE | 2023-08-31 14:48 | P.ANPRN ---
Procedure Note - Anesthesia - Nerve Block Performed Right Adductor Canal Single Time Out Performed: Yes (0714) Date of Procedure: 08/31/23 Procedure Start Time: 07:15 Procedure Stop Time: 07:17 Location of Patient: PreOp Indication: Acute Post-Operative Pain, Requested by Surgeon Specifically requested for management of pain by DrFunmilayo: Dennis Grande Sedation Type: Sedate with meaningful contact maintained Preparation: Sterile Prep Position: Supine Catheter: None Needle Types: Pajunk Needle Gauge: 21 Ultrasound used to visualize needle placement: Yes Ultrasound used to observe medication spread: Yes Injectate: 0.5% Ropivacaine (see comment for volume) (20cc) Blood Aspirated: No Pain Paresthesia on Injection Noted: No Resistance on Injection: Normal Image Stored and Saved: Yes Events: Uneventful and Well Tolerated
--- NOTE | 2023-08-31 14:49 | P.ANPRN ---
Procedure Note - Anesthesia - Nerve Block Performed Right iPack Single Time Out Performed: Yes (0714) Date of Procedure: 08/31/23 Procedure Start Time: :18 Procedure Stop Time: :19 Location of Patient: PreOp Indication: Acute Post-Operative Pain, Requested by Surgeon Specifically requested for management of pain by DrFunmilayo: Dennis Grande Sedation Type: Sedate with meaningful contact maintained Preparation: Sterile Prep Position: Prone Catheter: None Needle Types: Pajunk Needle Gauge: 21 Ultrasound used to visualize needle placement: Yes Ultrasound used to observe medication spread: Yes Injectate: 0.5% Ropivacaine (see comment for volume) (15cc+ 10cc nacl pf) Blood Aspirated: No Pain Paresthesia on Injection Noted: No Resistance on Injection: Normal Image Stored and Saved: Yes Events: Uneventful and Well Tolerated
[2023-08-31 16:39] LABS: Glucose,Whole Blood 131 mg/dL (70-110)
[2023-08-31] MEDS: PROMETHAZINE 25 MG TAB PO PRN (18:39)
[2023-08-31] MEDS ORDERED: ASPIRIN 81 MG PO SCH (21:00)
[2023-08-31] MEDS: SENNOSIDES-DOCUSATE SODIUM 1 EACH TAB PO SCH (21:58)
[2023-08-31] MEDS: APIXABAN 2.5 MG TABLET PO SCH (21:58)
[2023-09-01 06:02] LABS: Glucose,Whole Blood 101 mg/dL (70-110)
[2023-09-01] MEDS: HYDROcodone/APAP 10-325MG 1 EACH TAB PO PRN (06:25)
--- NOTE | 2023-09-01 07:48 | P.DS ---
Providers Date of admission: Sunday08/31/2023 Attending physician: Dennis Grande Consults: 08/31/23 09:50 Consult Physician Routine Consulting Provider: Avery Renee Consult Reason/Comments: post op medical management Do you want consulting provider notified?: Yes Primary care physician: Es[facility] Course: The patient is a very pleasant 77-year-old female who is admitted under my care yesterday and underwent a complicated total knee replacement. Following surgery she was transferred to the orthopedic floor. She was given 2 doses of postoperative antibiotics. She was resumed on Eliquis for DVT prophylaxis. Internal medicine was consulted for preoperative medical management. I saw the patient on postoperative day #1 and she was doing well. Her dressing was intact. There is mild swelling in the leg. Femoral nerve function was intact. Distally she was able to actively plantarflex and dorsiflex her ankle and her toes. She worked with physical therapy and did well. She was ultimately cleared for discharge home. Plan - Discharge Summary Discharge Rx Participant: Yes New Discharge Prescriptions: New Docusate [Colace] 100 mg PO BID #28 capsule HYDROcodone/APAP 5-325MG [[place] 5-325] 1 - 2 tab PO Q6HR PRN #32 tab PRN Reason: Pain Omeprazole 40 mg PO DAILY #30 cap Doxycycline Monohydrate 100 mg PO BID #28 cap No Action Metoprolol Succinate (ER) [Toprol XL] 12.5 mg PO QAM metFORMIN HCL 500 mg PO BID Cholecalciferol [Vitamin D3 (25 Mcg = 1000 Iu)] 125 mcg PO DAILY Albuterol Inhaler [Ventolin Hfa Inhaler] 1 - 2 puff INHALATION Q6H PRN #0 PRN Reason: sob Omeprazole 40 mg PO QAM Apixaban [Eliquis] 5 mg PO BID Rosuvastatin Calcium 5 mg PO HS Losartan Potassium 50 mg PO HS Ferrous Sulfate [Feosol] 325 mg PO Q2D Discharge Medication List Metoprolol Succinate (ER) [Toprol XL] 12.5 mg PO QAM 03/14/14 [History] Albuterol Inhaler [Ventolin Hfa Inhaler] 1 - 2 puff INHALATION Q6H PRN #0 02/19/23 [History] Apixaban [Eliquis] 5 mg PO BID 02/19/23 [History] Cholecalciferol [Vitamin D3 (25 Mcg = 1000 Iu)] 125 mcg PO DAILY 02/19/23 [History] Losartan Potassium 50 mg PO HS 02/19/23 [History] Rosuvastatin Calcium 5 mg PO HS 02/19/23 [History] metFORMIN HCL 500 mg PO BID 02/19/23 [History] Ferrous Sulfate [Feosol] 325 mg PO Q2D 08/24/23 [History] Omeprazole 40 mg PO QAM 08/24/23 [History] Docusate [Colace] 100 mg PO BID #28 capsule 08/31/23 [Rx] Doxycycline Monohydrate 100 mg PO BID #28 cap 08/31/23 [Rx] HYDROcodone/APAP 5-325MG [[place] 5-325] 1 - 2 tab PO Q6HR PRN #32 tab 08/31/23 [Rx] Omeprazole 40 mg PO DAILY #30 cap 08/31/23 [Rx] Follow up Appointment(s)/Referral(s): [facility] [NON-STAFF] - As Needed Dennis Grande MD [Medical Doctor] - 2 Weeks Patient Instructions/Handouts: Knee Replacement (DC) Activity/Diet/Wound Care/Special Instructions: 1. Weight-bear as tolerated on your operative extremity unless instructed otherwise. Use a walker or other assistive device to ambulate. 2. Leave surgical dressing in place. If your dressing becomes saturated with blood, there is drainage, or the dressing becomes loose please contact the office. 3. It is okay to shower with your surgical dressing, but do not submerge in water (no hot tubs, bath's, swimming etc.) 4. Resume your home dose of Eliquis for blood clot prevention 5. While taking [place] or Percocet for pain make sure you're taking a stool softener (Colace) and drink lots of water. 6. Keep all follow-up appointments as scheduled. You will usually be seen in 1-2 weeks following surgery. 7. Please contact the office with any questions or concerns [phone] Discharge Disposition: HOME WITH HOME HEALTH SERVICES
[2023-09-01 08:03] LABS: Basophils % (A) 0 %; Eosinophils % (A) 0 %; HCT 35.3 % (34.0-46.0); HGB 11.1 gm/dL (11.4-16.0); Lymphocytes # (A) 0.9 k/uL (1.0-4.8); Lymphocytes % (A) 9 %; MCH 26.8 pg (25.0-35.0); MCHC 31.4 g/dL (31.0-37.0); MCV 85.5 fL (80.0-100.0); Mean Platelet Volume 8.7; Monocytes # (A) 0.5 k/uL (0-1.0); Monocytes % (A) 5 %; Neutrophils # (A) 8.5 k/uL (1.3-7.7); Neutrophils % (A) 85 %; Platelet Count 139 k/uL (150-450); RBC 4.12 m/uL (3.80-5.40); RDW 13.3 % (11.5-15.5)
[2023-09-01 08:13] VITALS: BP 117/75; PULSE 75; RESP 18; TEMP 98.3
--- NOTE | 2023-09-01 11:28 | P.CONS ---
History of Present Illness - Reason for Consult Paroxysmal A-fib - History of Present Illness Patient is a pleasant 77-year-old female admitted for right knee arthroplasty successfully underwent surgery patient denies any complaints is being discharged today patient does have history of type 2 diabetes mellitus, atrial fibrillation on anticoagulation with Eliquis. Patient has mild leukocytosis which is exp ected postoperative.. Patient does have history of asthma presently not in acute exacerbation. REVIEW OF SYSTEMS: CONSTITUTIONAL: No fever, no malaise, no fatigue. HEENT: No recent visual problems or hearing problems. Denied any sore throat. CARDIOVASCULAR: No chest pain, orthopnea, PND, no palpitations, no syncope. PULMONARY: No shortness of breath, no cough, no hemoptysis. GASTROINTESTINAL: No diarrhea, no nausea, no vomiting, no abdominal pain. NEUROLOGICAL: No headaches, no weakness, no numbness. HEMATOLOGICAL: Denies any bleeding or petechiae. GENITOURINARY: Denies any burning micturition, frequency, or urgency. MUSCULOSKELETAL/RHEUMATOLOGICAL: Denies any joint pain, swelling, or any muscle pain. ENDOCRINE: Denies any polyuria or polydipsia. The rest of the 14-point review of systems is negative. PHYSICAL EXAMINATION: GENERAL: The patient is alert and oriented x3, not in any acute distress. Well developed, well nourished. HEENT: Pupils are round and equally reacting to light. EOMI. No scleral icterus. No conjunctival pallor. Normocephalic, atraumatic. No pharyngeal erythema. No thyromegaly. CARDIOVASCULAR: S1 and S2 present. No murmurs, rubs, or gallops. PULMONARY: Chest is clear to auscultation, no wheezing or crackles. ABDOMEN: Soft, nontender, nondistended, normoactive bowel sounds. No palpable organomegaly. MUSCULOSKELETAL: No joint swelling or deformity. EXTREMITIES: No cyanosis, clubbing, or pedal edema. NEUROLOGICAL: Gross neurological examination did not reveal any focal deficits. SKIN: No rashes. Assessment and plan -Atrial fibrillation paroxysmal presently rate controlled in sinus rhythm patient will be resumed on Eliquis -Asthma without any acute exacerbation -Type 2 diabetes mellitus patient can be resumed on metformin follow-up as an outpatient -Gastroesophageal flux disease -Hyperlipidemia Patient can be discharged from medical perspective no further recommendations DVT prophylaxis: Patient is on Eliquis Past Medical History Past Medical History: Atrial Fibrillation, Asthma, Cancer, Diabetes Mellitus, GERD/Reflux, Hyperlipidemia, Osteoarthritis (OA), Supraventricular Tachycardia (SVT), Syncope Additional Past Medical History / Comment(s): asthma symptoms with environmental allergies,syncope x2 after knee surgery fall 2022,skin CA-basal and squamous cell skin cancer removed from right arm/chest,angiolipom on left kidney History of Any Multi-Drug Resistant Organisms: None Reported Past Surgical History: Cholecystectomy, Hysterectomy, Tonsillectomy, Tubal Ligation Additional Past Surgical History / Comment(s): lump removed from left hip area, RIGHT TOTAL HIP 02/23/23,hand surgery Past Anesthesia/Blood Transfusion Reactions: Previous Problems w/ Anesthesia, Postoperative Nausea & Vomiting (PONV) Additional Past Anesthesia/Blood Transfusion Reaction / Comm: takes a long time to wake up. had PONV with hip surgery in . no hx blood transfsuion Type of Cardiac Device: Loop Device Placement Date:: left chest-no longer working Past Psychological History: No Psychological Hx Reported Smoking Status: Never smoker Past Alcohol Use History: None Reported Past Drug Use History: None Reported - Past Family History Mother Family Medical History: Congestive Heart Failure (CHF), Diabetes Mellitus, Deep Vein Thrombosis (DVT) Additional Family Medical History / Comment(s): Lupus. Father Family Medical History: Myocardial Infarction (NM) Additional Family Medical History / Comment(s): Lupus Medications and Allergies Home Medications Medication Instructions Recorded Confirmed Type Metoprolol Succinate (ER) [Toprol 12.5 mg PO QAM 03/14/14 08/31/23 History XL] Albuterol Inhaler [Ventolin Hfa 1 - 2 puff INHALATION Q6H PRN #0 02/19/23 08/31/23 History Inhaler] Apixaban [Eliquis] 5 mg PO BID 02/19/23 08/31/23 History Cholecalciferol [Vitamin D3 (25 125 mcg PO DAILY 02/19/23 08/31/23 History Mcg = 1000 Iu)] Losartan Potassium 50 mg PO HS 02/19/23 08/31/23 History Rosuvastatin Calcium 5 mg PO HS 02/19/23 08/31/23 History metFORMIN HCL 500 mg PO BID 02/19/23 08/31/23 History Ferrous Sulfate [Feosol] 325 mg PO Q2D 08/24/23 08/31/23 History Omeprazole 40 mg PO QAM 08/24/23 08/31/23 History Docusate [Colace] 100 mg PO BID #28 capsule 08/31/23 Rx Doxycycline Monohydrate 100 mg PO BID #28 cap 08/31/23 Rx HYDROcodone/APAP 5-325MG [[place] 1 - 2 tab PO Q6HR PRN #32 tab 08/31/23 Rx 5-325] Omeprazole 40 mg PO DAILY #30 cap 08/31/23 Rx Allergies Allergy/AdvReac Type Severity Reaction Status Date / Time adhesive Allergy Severe Verified 08/31/23 06:34 Blisters-ok w/ paper tape cephalexin monohydrate Allergy severe rash Verified 08/31/23 06:34 [From Keflex] codeine Allergy nausea/vomi Verified 08/31/23 06:34 ting iodine Allergy severe Verified 08/31/23 06:34 Blisters w/ all iodine containing prod. latex Allergy severe Verified 08/31/23 06:34 Blisters Penicillins Allergy severe rash Verified 08/31/23 06:34 shellfish derived [Shellfish] Allergy Nausea/bloa Verified 08/31/23 06:34 ting acetaminophen [From Tylenol] AdvReac Fluid Verified 08/31/23 06:34 Retention Wild Mushrooms Allergy fresh Uncoded 08/31/23 06:34 mushrooms even cooked-Nausea/vomiting Physical Exam Vitals: Vital Signs Temp Pulse Resp BP Pulse Ox 09/01/23 08:00 98.3 F 75 18 117/75 96 09/01/23 02:51 97.5 F L 66 20 114/66 98 08/31/23 19:17 98.6 F 60 20 131/69 98 08/31/23 13:49 75 18 138/80 95 08/31/23 12:54 67 134/78 96 08/31/23 12:39 62 126/76 94 L 08/31/23 12:24 71 136/79 95 08/31/23 12:09 77 131/67 95 08/31/23 11:54 63 121/72 92 L 08/31/23 11:39 74 119/71 85 L Intake and Output 08/31/23 09/01/23 09/01/23 22:59 06:59 14:59 Intake Total 850 Output Total 0 600 Balance 0 250 Intake: Oral 850 Output: Urine 600 Stool 0 Other: # Voids 2 Results CBC & Chem 7: 09/01/23 06:50 Labs: Abnormal Lab Results - Last 24 Hours (Table) 08/31/23 09/01/23 Range/Units 16:38 06:50 Hgb 11.1 L (11.4-16.0) gm/dL Plt Count 139 L (150-450) k/uL Neutrophils # 8.5 H (1.3-7.7) k/uL Lymphocytes # 0.9 L (1.0-4.8) k/uL POC Glucose (mg/dL) 131 H (70-110) mg/dL
[2023-09-01 11:55] LABS: Glucose,Whole Blood 156 mg/dL (70-110)
== END 2023-09-01 12:58 | disposition home health service (06) ==
LOC: OR 05:41 → 4SSUR 09:32 → OR 09-01 12:58
PROVIDERS: ATTEND Orthopaedic Surgery
DX: M17.11 Unilateral primary osteoarthritis, right knee (principal); M25.761 Osteophyte, right knee; G89.18 Other acute postprocedural pain; I48.19 Other persistent atrial fibrillation; K21.9 Gastro-esophageal reflux disease without esophagitis; E78.5 Hyperlipidemia, unspecified; E11.9 Type 2 diabetes mellitus without complications; Z79.899 Other long term (current) drug therapy; Z88.0 Allergy status to penicillin; Z88.5 Allergy status to narcotic agent; Z88.1 Allergy status to other antibiotic agents; Z79.01 Long term (current) use of anticoagulants; Z90.49 Acquired absence of other specified parts of digestive tract; Z90.710 Acquired absence of both cervix and uterus; Z96.641 Presence of right artificial hip joint; Z98.890 Other specified postprocedural states
CPT/HCPCS: 0055T; 27447; 64447; 64999; 85025

== ENCOUNTER 2023-10-17 11:14 | Day surgery (SDC) | payer MEDICARE, OTHER ==
[~2023-10-17 11:14] MED LIST changes: +LIDOCAINE 1% (10MG/ML) FOR IV START INTRADERMA PRN; +Pre Op ABX Message 1 EACH MISC MISCELLANE ONE; -ROPIVACAINE/EPI/CLONIDINE/KET 50 ML SYRINGE MISCELLANE PRN
[2023-10-17 12:06] LABS: Glucose,Whole Blood 103 mg/dL (70-110)
[2023-10-17] MEDS: LACTATED RINGERS 1,000 ML IV SCH (12:06)
[2023-10-17] MEDS ORDERED: ONDANSETRON 4 MG/2 ML VIAL ONE (12:07)
[2023-10-17] MEDS ORDERED: METOCLOPRAMIDE 5 MG/ML 2 ML VIAL ONE (12:08)
[2023-10-17] MEDS: DEXAMETHASONE SOD PHOSPHATE 4 MG/ML 1 ML VIAL IVP ONE (12:16)
[2023-10-17] MEDS: ONDANSETRON 4 MG/2 ML VIAL IVP ONE (12:17)
[2023-10-17] MEDS: FAMOTIDINE 20 MG/2 ML VIAL IVP ONE (12:17)
[2023-10-17] MEDS: METOCLOPRAMIDE 5 MG/ML 2 ML VIAL IVP ONE (12:18)
[2023-10-17] MEDS ORDERED: PROPOFOL 10 MG/ML 20 ML VIAL IV ONE (12:19)
[2023-10-17] MEDS ORDERED: fentaNYL (PF) 50 MCG/ML 2 ML AMP ONE (12:19)
[2023-10-17] MEDS ORDERED: LIDOCAINE 1% INJ 10MG/ML (20 ML MDV) ONE (12:19)
[2023-10-17] MEDS ORDERED: HYDROcodone/APAP 5-325MG 1 EACH TAB PO PRN (12:45)
--- NOTE | 2023-10-17 12:49 | P.OP ---
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 She did well postoperatively except for limited motion in the knee. She failed to improve past 80 of knee flexion despite aggressive physical therapy. My recommendation was to perform a manipulation under anesthesia to improve her knee motion. We discussed the potential risks of this including but certainly not limited to continued or worsened knee range of motion, fracture, pain, swelling, need for further surgery, possibility of revision, dissatisfaction, medical complication and possibly loss of life or limb. The patient provided her consent to go forward with the procedure. Description of Procedure: I met with the patient and her in preoperative holding. The correct right leg was marked with my initials. I reviewed the consent form and all the patient's questions were answered. The patient was then brought back to the operating room. LMA and anesthesia was provided. A timeout was performed identifying the correct patient, operative extremity, and procedure. Once the patient was under anesthesia I performed an exam of her knee. Her incision is well-healed, she had full extension and flexion to 75. Over 5 minutes I applied a gentle posterior force over the proximal third of the tibia while listening directly over her knee to hear audible cracking as the adhesions were released. Slowly over 5 minutes I was able to increase the patient's knee flexion to 110. At this point the patient's anesthetic was reversed and she was brought to recovery having tolerated the procedure well Plan: The patient is going to discharge home today. She has an appointment with therapy later this afternoon. She was encouraged to aggressively work on knee range of motion. She'll follow-up in the office in 1 week for recheck. She does not need x-rays at that time.
[2023-10-17 13:34] VITALS: RESP 16; TEMP 97.3
[2023-10-17 14:36] VITALS: BP 147/86; PULSE 73
== END 2023-10-17 14:02 | disposition home or self-care (01) ==
LOC: OR 11:14
PROVIDERS: ATTEND Orthopaedic Surgery
DX: M24.661 Ankylosis, right knee (principal); E78.5 Hyperlipidemia, unspecified; E11.9 Type 2 diabetes mellitus without complications; K21.9 Gastro-esophageal reflux disease without esophagitis; I48.91 Unspecified atrial fibrillation; Z79.899 Other long term (current) drug therapy; Z98.890 Other specified postprocedural states; Z88.5 Allergy status to narcotic agent; Z88.0 Allergy status to penicillin; Z88.2 Allergy status to sulfonamides; Z88.1 Allergy status to other antibiotic agents; Z90.710 Acquired absence of both cervix and uterus; Z90.49 Acquired absence of other specified parts of digestive tract; Z96.651 Presence of right artificial knee joint; Z79.84 Long term (current) use of oral hypoglycemic drugs; Z79.01 Long term (current) use of anticoagulants
CPT/HCPCS: 27570; J1100; J2765; J2405; J2001; J3010; J3490; J2704

== ENCOUNTER → 2024-12-11 | Outpatient (CLI) | payer MEDICARE, OTHER ==
--- NOTE | 2024-12-11 09:58 | CT ---
EXAMINATION TYPE: CT abdomen pelvis wo con DATE OF EXAM: 12/11/2024 9:28 AM COMPARISON: CT abdomen pelvis most recent from 07/06/2015. CLINICAL INDICATION: Female, 79 years old with history of R10.9 UNSPECIFIED ABDOMINAL PAIN; LOWER ABD OMINAL PAIN/TENDERESS TO THE TOUCH. NO CONTRAST TECHNIQUE: Axial CT abdomen pelvis wo con;Sagittal and coronal reformats were created on a separate workstation. Contrast used: mL of , (none if empty) Oral contrast used: without Oral Contrast (none if empty) CT DLP: 748.30 mGycm, Automated exposure control for dose reduction was used. FINDINGS: LOWER CHEST: Unremarkable ABDOMEN LIVER: Simple appearing caudate lobe cyst. GALLBLADDER AND BILE DUCTS: The gallbladder is surgically absent. PANCREAS: Lipomatous pseudohypertrophy changes. SPLEEN: Unremarkable. ADRENAL GLANDS: Unremarkable. KIDNEYS AND URETERS: No evidence of hydronephrosis or obstructing renal calculus. The ureters are unr emarkable. Left renal cortical fat-containing 22 mm lesion compatible with angiomyolipoma. PELVIS BLADDER: No evidence for wall thickening or mass given limitations of exam. REPRODUCTIVE: Unremarkable. ABDOMEN & PELVIS STOMACH AND BOWEL: No evidence of bowel obstruction. Few scattered colonic diverticula. The appendix is normal. PERITONEUM/RETROPERITONEUM: No evidence of pneumoperitoneum or free fluid. VASCULATURE: No evidence of aortic aneurysm. MUSCULOSKELETAL: No acute osseous abnormalities. Moderate disc degeneration changes are present throu ghout the thoracolumbar spine. Levoscoliosis apex L2. Right hip arthroplasty hardware appears intact. LYMPH NODES: No gross evidence for lymphadenopathy. SOFT TISSUE/ABDOMINAL WALL: Unremarkable IMPRESSION: 1. No evidence for acute process. 2. Colonic diverticulosis. 3. Left renal cortical fat-containing 22 mm lesion compatible with angiomyolipoma. Similar to 07/06/19 16. 4. Simple appearing hepatic cysts. New from 2015. [facility], , 12/11/2024 9:56 AM
== END | disposition home or self-care (01) ==
LOC: RADCTMAIN 08:54
PROVIDERS: ATTEND Internal Medicine
DX: K57.30 Diverticulosis of large intestine without perforation or abscess without bleeding (principal); K76.89 Other specified diseases of liver; N28.89 Other specified disorders of kidney and ureter
CPT/HCPCS: 74176